=== PATIENT | male | born 1960 | race Two or more races ===

== ENCOUNTER 2017-04-08 09:19 | Day surgery (SDC) | payer MEDICARE, MEDICAID ==
--- NOTE | 2017-03-18 07:20 | HP ---
PREOPERATIVE HISTORY AND PHYSICAL: DATE OF ADMISSION: 04/08/17 [facility] CHIEF COMPLAINT: Bilateral hand pain. HISTORY OF PRESENT ILLNESS: Preston Cordova is a very pleasant 56-year-old man who has pain in his bilateral hands involving most of his fingers. He has locking of his fingers. He has had conservative treatment which he has now failed. He has had cortisone injections. He now presents for surgery for trigger finger releases on his right hand, thumb, index, middle, ring, and small fingers. PAST MEDICAL HISTORY: Significant for hypertension, he has had a kidney transplant. He has history of the humerus fracture with nonunion, history of anemia, depression, back pain, and heartburn. PAST SURGICAL HISTORY: Renal transplant done in [place]. FAMILY HISTORY: Heart disease, diabetes, and cancer. SOCIAL HISTORY: He lives with his . He denies tobacco and alcohol use. He does not regularly exercise. REVIEW OF SYSTEMS: Negative for cephalic symptoms, positive for hypertension which caused renal failure and subsequent kidney transplant, his blood pressure is now better controlled. He has occasional shortness of breath. He has symptoms of heartburn, nausea, vomiting, diarrhea and constipation, prostate trouble, nocturia, also back pain, history of fracture. Negative for skin symptoms. Positive for his depression and anxiety. Negative for endocrine symptoms. PHYSICAL EXAMINATION GENERAL: He is a healthy-appearing, very pleasant man in minimal distress at rest. VITAL SIGNS: Height is 67 inches, weight 166. Pulse 68, blood pressure 144/98 , respirations 16. HEENT: Exam is unremarkable. NECK: He has good range of motion of his neck without pain. RESPIRATORY: His lungs are clear to auscultation, good inspiratory effort, no wheezing. CARDIAC: Regular rate and rhythm without murmur. PERIPHERAL VASCULAR: He has palpable pulses and no peripheral edema. EXTREMITIES: He has tenderness at the A1 pulleys of all of his fingers on the right hand and he cannot make a full tight fist. NEUROLOGICAL: He is alert and oriented without focal deficits. IMPRESSION: Trigger fingers, right thumb, index, middle, ring, and small finger. PLAN: For trigger finger release of the right thumb, index, middle, ring, and small fingers. The surgical procedure, risks, and benefits were explained to the patient today, and he agrees to proceed. We will see him back in followup 10 to 14 days postop. [id number]/CPS #: [id number] MTDD
[~2017-04-08 09:19] MED LIST: Buffered Lidocaine 0.9% SYRIN* 5 ML/SYR SYRINGE INTRADERM ONE
[2017-04-08] MEDS ORDERED: Lidocaine 1% INJ* 10 MG/ML 30 ML SDV ONE (09:25)
[2017-04-08] MEDS ORDERED: Midazolam* 1 MG/ML 5 ML VIAL (5 MG) ONE (10:35)
[2017-04-08] MEDS ORDERED: Lidocaine 2% PF * 5 ML VIAL ONE (10:35)
[2017-04-08] MEDS ORDERED: Propofol* 10 MG/ML 20 ML BTL IV PUSH ONE (10:35)
[2017-04-08] MEDS ORDERED: fentaNYL* 50 MCG/ML 2 ML VIAL (100 MCG VIAL) ONE (10:35)
[2017-04-08] MEDS ORDERED: ceFAZolin 2 GM PREMIX (*) 50 ML IVPB ONE (10:42)
[2017-04-08] MEDS ORDERED: PROCHLORPERAZINE INJ 5 MG/ML 2 ML VIAL IV PRN (11:40)
[2017-04-08] MEDS ORDERED: fentaNYL* 50 MCG/ML 2 ML VIAL (100 MCG VIAL) IV PRN (11:40)
[2017-04-08] MEDS ORDERED: oxyCODONE TAB* 5 MG TAB PO PRN (11:40)
[2017-04-08 12:11] VITALS: BP 106/70
--- NOTE | 2017-04-09 06:29 | OP ---
DATE OF OPERATION: 04/08/17 [facility] DATE OF : 64 SURGEON: Lulu Glover MD VISUALLY IMPAIRED TEACHER: JULES Arredondo. ANESTHESIA: Local MAC. PRE-OP DIAGNOSIS: Trigger fingers to all fingers of the right hand. POST-OP DIAGNOSIS: Trigger fingers to all fingers of the right hand. OPERATIVE PROCEDURE: Trigger finger release, all fingers right hand. ESTIMATED BLOOD LOSS: Zero. TOURNIQUET TIME: 15 minutes. INDICATIONS FOR PROCEDURE: Preston is a 56-year-old man who has triggering of all the fingers of his right hand. He has had cortisone injections trigger finger release of all fingers of his right hand. DESCRIPTION OF PROCEDURE: The patient was brought to the operating room DICTATION ENDS ABRUPTLY. [id number]/CPS #: [id number] MTDD
--- NOTE | 2017-04-09 06:37 | OP ---
OPERATIVE REPORT: DATE OF OPERATION: 04/08/17 DATE OF : 64 SURGEON: Lulu Glover MD. RN OSTOMY: JULES Arredondo. ANESTHESIA: Local MAC. PRE-OP DIAGNOSIS: Trigger fingers every finger of the right hand. POST-OP DIAGNOSIS: Trigger fingers every finger of the right hand. OPERATIVE PROCEDURE: Trigger finger release, all fingers of right hand. ESTIMATED BLOOD LOSS: Zero. TOURNIQUET TIME: About 15 minutes. INDICATION FOR PROCEDURE: Preston is a 56-year-old male who has trigger fingers of all the fingers of his right hand. DICTATION ENDS ABRUPTLY. [id number]/CPS #: [id number] MTDD
--- NOTE | 2017-04-09 06:54 | OP ---
DATE OF OPERATION: 04/08/17 - [facility] DATE OF : 64 SURGEON: Lulu Glover MD. UNIVERSITY EXTENSION SPECIALIST: JULES Arredondo ANESTHESIOLOGIST: Casper Cm MD ANESTHESIA: Local MAC. PRE-OP DIAGNOSIS: Trigger fingers, right hand, all fingers. POST-OP DIAGNOSIS: Trigger fingers, right hand, all fingers. OPERATIVE PROCEDURE: Trigger fingers release, all fingers right hand. ESTIMATED BLOOD LOSS: Zero. TOURNIQUET TIME: About 15 minutes. INDICATIONS FOR PROCEDURE: Preston is a 56-year-old male with trigger fingers of all the fingers on his right hand. He has had cortisone injections, but now has failed conservative treatment and he presents for trigger finger release of all fingers of the right hand. DESCRIPTION OF PROCEDURE: The patient was brought to the operating room, was given a sedation anesthetic and a local infiltration with a total of 15 cc of 1 % plain lidocaine. The skin of his right hand and forearm was prepped and draped in the usual sterile fashion. The hand and forearm were exsanguinated and the tourniquet elevated to 250 mmHg. A transverse incision was made centered over the A1 pulleys of the ring and small finger, and then a separate incision over the A1 pulleys of the index and middle fingers. We dissected bluntly through the subcutaneous tissue down to the flexor tendon sheath of each finger. The digital neurovascular bundles were retracted by the director medical surgical, Marly Rain. The A1 fish was incised longitudinally, completely releasing the flexor tendons which were in good condition with minimal abrasion. The wounds were irrigated and skin edges reapproximated with 4-0 nylon suture. Next, a transverse incision was made centered over the A1 fish of the right thumb. We dissected bluntly through the subcutaneous tissue down to the A1 fish. The digital neurovascular bundles were retracted by the director medical surgical, Marly Rain. The A1 fish was then incised longitudinally completely releasing the FCL tendons which were in good condition , there was a small abrasion. The wound was irrigated and skin edges reapproximated with 4-0 nylon sutures. The wounds were dressed with Xeroform, 4x4, Webril, and an Wilbur wrap. The patient tolerated the procedure well and was brought to the recovery room in good condition. [id number]/[facility] #: [id number] [facility]
== END 2017-04-08 12:29 | disposition home or self-care (01) ==
LOC: OREAST 09:19
PROVIDERS: ATTEND Orthopaedic Surgery
DX: M65.331 Trigger finger, right middle finger (principal); M65.341 Trigger finger, right ring finger; M65.321 Trigger finger, right index finger; M65.311 Trigger thumb, right thumb; M65.351 Trigger finger, right little finger; I10 Essential (primary) hypertension; Z94.0 Kidney transplant status
CPT/HCPCS: J0690; J2001; J2250; J2704; J3010

== ENCOUNTER 2017-08-08 05:54 | Emergency (ER) | payer MEDICARE, MEDICAID ==
--- OUTSIDE RECORDS SUMMARY | 2017-08-08 06:13 | XMS REPORT ---
:1960 External Reference #:[id number] Author Organization [facility] Address [address] [address] Phone [phone] Care Team Providers Name Role Phone Tomás Fam III, MD Primary Care Physician Unavailable Payers Type Date Identification Numbers Payment Provider Subscriber Medicare Primary Effective: Policy Number: Medicare Preston Cordova 1998 [id number] PayID: [id number] [address] [place] [address] Medigap Part B Effective: 2015 Policy Number: [id number] Medicaid Preston Cordova PayID: [id number] [address] [place] [address] Problems Date Description Provider Status Onset: 04/15/2015 Closed fracture of shaft of humerus Ethan Mcdonough M.D. Active Onset: 04/24/2015 Displ transverse fx shaft of frank pan arm, Brett Young, M.D. Active 7thD Onset: 05/13/2015 History of renal transplant Raudel Soler NP Active Onset: 05/13/2015 Hypertension associated with Raudel Soler NP Active transplantation Onset: 01/20/2017 Displ transverse fx shaft of frank pan arm, Zaneb Yaseen, MD Active 7thG Family History Date Family Member(s) Problem(s) Comments General Heart Disease General Diabetes General Cancer Father due to Not listed. () - At 31 Mother Diabetes Type II 74 Social History Type Date Description Comments Lives With ETOH Use Denies alcohol use Smoking Patient has never smoked Recreational Drug Use Denies Drug Use Exercise Type/Frequency Does not exercise Allergies, Adverse Reactions, Alerts Date Description Reaction Status Severity Comments 04/15/2015 Cipro active 06/22/2017 Latex active Medications Medication Date Status Form Strength Qnty SIG Indications Ordering Provider Oxycodone HCL 08/01/ Active Capsules 5mg 15caps 1 tab by Lulu 2017 mouth Glover, every 6-8 M.D. hours as needed pain Crestor / Active Tablets 5mg 1 by Unknown 0000 mouth every day Mycophenolate / Active Capsules 250mg take 2 Unknown Mofetil 0000 capsule by mouth twice a day Tacrolimus / Active Capsules 0.5mg 1 by Unknown 0000 mouth every day Tacrolimus / Active Capsules 1mg 3 po by Unknown 0000 mouth in am. 2 po in pm Pantoprazole / Active Tablets DR 40mg 1 by Unknown Sodium 0000 mouth every day Metoprolol / Active Tablets 50mg 1 by Unknown Tartrate 0000 mouth qd Keflex 04/26/ Hx Capsules 500mg 20caps 1 by M65.311 Jenise 2016 - mouth 4 Tariq, 05/03/ times a M.D. 2016 day for 5 days Tramadol HCL 04/08/ Hx Tablets 50mg 20tabs 1 tab by Lulu 2016 - mouth Glover, 05/25/ every 4-6 M.D. 2017 hours as needed pain Ultracet 04/05/ Hx Tablets 37.5-325mg 20tabs 1 tab by Lulu 2016 - mouth Glover, 05/25/ every 4-6 M.D. 2017 hours as needed pain. For use After surgery. Amoxicillin/Cla 10/20/ Hx Tablets 875-125mg 20tabs 1 tab by L02.03 Patricia vulanate 2015 - mouth 2x Ridley, Potassium 12/28/ per day M.D. 2016 Tylenol PM 10/20/ Hx Tablets 500-25mg 20tabs 1 tab po L02.03 Patricia Extra Strength 2015 - every 6 Ridley, 03/07/ hours as M.D. 2016 needed Olson Brace 04/24/ Hx S42.321D Ethan For Right Mid 2014 - Young, Shaft Humerus 10/20/ M.D. Fracture 2016 No Active 04/15/ Hx Unknown Medications 2014 - 2014 Oxycodone-Aceta 04/15/ Hx Tablets 5-325mg 45tabs 1-2 tabs S42.321A Emilia minophen 2015 - by mouth MD Sohail 10/20/ bid as 2016 needed pain Amlodipine / Hx Tablets 5mg 1 by Unknown Besylate 0000 - mouth 10/20/ every day 2016 Medications Administered in Office Medication Date Status Form Strength Qnty SIG Indications Ordering Provider Depomedrol Administered Injection Lulu 80MG Edmund Glover M.D. Vital Signs Date Vital Result Comment 08/01/2017 Height 67 inches 5'7" Weight 157.00 lb Heart Rate 68 /min BP Systolic 156 mmHg BP Diastolic 70 mmHg Respiratory Rate 20 /min Body Temperature 97.4 F Pain Level 0 BMI (Body Mass Index) 24.6 kg/m2 06/22/2017 Height 67 inches 5'7" Weight 166.00 lb Heart Rate 79 /min BP Systolic 153 mmHg BP Diastolic 87 mmHg Body Temperature 97.9 F BMI (Body Mass Index) 26.0 kg/m2 05/04/2017 Height 67 inches 5'7" Weight 166.00 lb Heart Rate 68 /min BP Systolic 169 mmHg BP Diastolic 100 mmHg Body Temperature 96.0 F BMI (Body Mass Index) 26.0 kg/m2 04/26/2017 Height 67 inches 5'7" Weight 166.00 lb BP Systolic 128 mmHg BP Diastolic 81 mmHg Body Temperature 98.2 F Pain Level 8 BMI (Body Mass Index) 26.0 kg/m2 04/21/2017 Height 67 inches 5'7" Weight 166.00 lb Heart Rate 72 /min BP Systolic 136 mmHg BP Diastolic 88 mmHg Respiratory Rate 16 /min Body Temperature 96.3 F Pain Level 4 BMI (Body Mass Index) 26.0 kg/m2 03/17/2017 Height 67 inches 5'7" Weight 166.00 lb Heart Rate 68 /min BP Systolic 144 mmHg BP Diastolic 98 mmHg Respiratory Rate 16 /min Body Temperature 96.6 F Pain Level 10 BMI (Body Mass Index) 26.0 kg/m2 03/08/2017 Heart Rate 62 /min BP Systolic Sitting 155 mmHg BP Diastolic Sitting 85 mmHg Body Temperature 97.7 F Pain Level 7 02/28/2017 Height 67 inches 5'7" Weight 146.00 lb Heart Rate 88 /min BP Systolic 132 mmHg BP Diastolic 92 mmHg Respiratory Rate 17 /min Body Temperature 96.8 F Pain Level 10 BMI (Body Mass Index) 22.9 kg/m2 02/24/2017 Height 67 inches 5'7" Weight 160.00 lb BP Systolic 109 mmHg BP Diastolic 70 mmHg Body Temperature 96.8 F Pain Level 0 BMI (Body Mass Index) 25.1 kg/m2 01/20/2017 Height 67 inches 5'7" Weight 160.00 lb Heart Rate 67 /min BP Systolic 170 mmHg BP Diastolic 90 mmHg Body Temperature 97.2 F Pain Level 3 BMI (Body Mass Index) 25.1 kg/m2 10/30/2015 Height 67 inches 5'7" Weight 156.00 lb Heart Rate 77 /min Pain Level 4 BMI (Body Mass Index) 24.4 kg/m2 10/23/2015 Height 67 inches 5'7" Weight 156.00 lb Pain Level 4 BMI (Body Mass Index) 24.4 kg/m2 10/21/2015 Height 67 inches 5'7" Weight 159.00 lb Heart Rate 77 /min BP Systolic 148 mmHg BP Diastolic 80 mmHg Body Temperature 98.4 F O2 % BldC Oximetry 99 % BMI (Body Mass Index) 24.9 kg/m2 09/03/2015 Height 67 inches 5'7" Weight 156.00 lb Pain Level 6 BMI (Body Mass Index) 24.4 kg/m2 07/14/2015 Height 67 inches 5'7" Weight 156.00 lb BMI (Body Mass Index) 24.4 kg/m2 06/10/2015 Height 67 inches 5'7" Weight 156.00 lb Pain Level 7 BMI (Body Mass Index) 24.4 kg/m2 06/05/2015 Height 67 inches 5'7" Weight 156.00 lb Heart Rate 67 /min BP Systolic Sitting 173 mmHg BP Diastolic Sitting 108 mmHg Pain Level 10 BMI (Body Mass Index) 24.4 kg/m2 05/26/2015 Heart Rate 65 /min BP Systolic Sitting 142 mmHg BP Diastolic Sitting 93 mmHg Body Temperature 96.8 F Pain Level 6 05/26/2015 Weight 156.00 lb Heart Rate 78 /min BP Systolic Sitting 122 mmHg BP Diastolic Sitting 80 mmHg Respiratory Rate 13 /min Body Temperature 98.0 F O2 % BldC Oximetry 98 % 05/12/2015 Weight 155.00 lb Heart Rate 82 /min BP Systolic Sitting 181 mmHg BP Diastolic Sitting 99 mmHg Body Temperature 97.4 F O2 % BldC Oximetry 97 % 05/08/2015 Height 67 inches 5'7" Weight 149.00 lb Pain Level 7 BMI (Body Mass Index) 23.3 kg/m2 04/24/2015 Height 67 inches 5'7" Weight 149.00 lb Pain Level 10 BMI (Body Mass Index) 23.3 kg/m2 04/22/2015 BP Systolic Recheck 170 mmHg BP Diastolic Recheck 100 mmHg 04/22/2015 Height 65.5 inches 5'5.50" Weight 151.00 lb Heart Rate 83 /min BP Systolic Sitting 179 mmHg BP Diastolic Sitting 101 mmHg Body Temperature 98.0 F BMI (Body Mass Index) 24.7 kg/m2 04/15/2015 Height 67 inches 5'7" Weight 149.00 lb Pain Level 10 BMI (Body Mass Index) 23.3 kg/m2 Results Test Date Test Result H/L Range Note Laboratory test finding 05/13/2015 [place]upe (Antinuclear Negative Negative Antibodies) Comp Metabolic Panel 05/13/2015 Sodium 137 mmol/L 133-145 Potassium 4.2 mmol/L 3.5-5.0 Chloride 106 mmol/L 101-111 Co2 Carbon Dioxide 24 mmol/L 22-32 Anion Gap 7 mmol/L 2-11 Glucose 98 mg/dL 70-100 Blood Urea Nitrogen 22 mg/dL 6-24 Creatinine 1.94 mg/dL High 0.67-1.17 BUN/Creatinine Ratio 11.3 8-20 Calcium 10.6 mg/dL High 8.6-10.3 Total Protein 7.2 g/dL 6.4-8.9 Albumin 4.4 g/dL 3.2-5.2 Globulin 2.8 g/dL 2-4 Albumin/Globulin Ratio 1.6 1-3 Total Bilirubin 0.40 mg/dL 0.2-1.0 Alkaline Phosphatase 178 U/L High 34-104 Alt 36 U/L 7-52 Ast 21 U/L 13-39 Egfr Non- 36.4 >60 Egfr 46.8 >60 1 CBC Auto Diff 05/13/2015 White Blood Count 7.9 10^3/uL 4.8-10.8 Red Blood Count 3.89 10^6/uL Low 4.0-5.4 Hemoglobin 12.4 g/dL Low 14.0-18.0 Hematocrit 37 % Low 42-52 Mean Corpuscular Volume 95 fL High 80-94 Mean Corpuscular Hemoglobin 32 pg High 27-31 Mean Corpuscular HGB Conc 34 g/dL 31-36 Red Cell Distribution Width 13 % 10.5-15 Platelet Count 241 10^3/uL 150-450 Mean Platelet Volume 8 um3 7.4-10.4 Abs Neutrophils 5.5 10^3/uL 1.5-7.7 Abs Lymphocytes 1.6 10^3/uL 1.0-4.8 Abs Monocytes 0.4 10^3/uL 0-0.8 Abs Eosinophils 0.3 10^3/uL 0-0.6 Abs Basophils 0.1 10^3/uL 0-0.2 Abs Nucleated RBC 0 10^3/uL Granulocyte % 69.8 % 38-83 Lymphocyte % 19.8 % Low 25-47 Monocyte % 5.2 % 1-9 Eosinophil % 4.3 % 0-6 Basophil % 0.9 % 0-2 Nucleated Red Blood Cells % 0 Laboratory test finding 05/13/2015 TSH (Thyroid Stim Horm) 1.57 ?IU/mL 0.34-5.60 T3 Free 2.80 pg/mL 2.5-3.9 Free T4 (Free Thyroxine) 0.98 ng/mL 0.61-1.12 Rheumatoid Factor <15 IU/mL <15 2 Cyclic Citrullinated Pep Igg 19.2 U 3 1 Because ethnic data is not always readily available, this report includes an eGFR for both -Americans and non- Americans. The National Kidney Disease Education Program (NKDEP) does not endorse the use of the MDRD equation for patients that are not between the ages of 18 and 70, are , have extremes of body size, muscle mass, or nutritional status, or are non- or non-. According to the National Kidney Foundation, irrespective of diagnosis, the stage of the disease is based on the level of kidney function: Stage Description GFR(mL/min/1.73 m(2)) 1 Kidney damage with normal or decreased GFR 90 2 Kidney damage with mild decrease in GFR 60-89 3 Moderate decrease in GFR 30-59 4 Severe decrease in GFR 15-29 5 Kidney failure <15 (or dialysis) 2 Test Performed by: [address] [address] [employer] Consultant: Joseph Williamson II, M.D., Ph.D. 3 REFERENCE VALUE <20.0 (Negative) Test Performed by: [address] [address] [employer] Consultant: Joseph Williamson II, M.D., Ph.D. Procedures Date CPT Code Description Status 04/08/2017 95327 Trigger Finger Release Incision / Tendon Sheath Completed Incision 04/08/2017 97597 Trigger Finger Release Incision / Tendon Sheath Completed Incision 04/08/2017 78643 Trigger Finger Release Incision / Tendon Sheath Completed Incision 04/08/2017 93713 Trigger Finger Release Incision / Tendon Sheath Completed Incision 04/08/2017 05528 Trigger Finger Release Incision / Tendon Sheath Completed Incision 04/08/2017 52904 Trigger Finger Release Incision / Tendon Sheath Completed Incision 04/08/2017 76723 Trigger Finger Release Incision / Tendon Sheath Completed Incision 04/08/2017 51424 Trigger Finger Release Incision / Tendon Sheath Completed Incision 04/08/2017 50177 Trigger Finger Release Incision / Tendon Sheath Completed Incision 04/08/2017 32982 Trigger Finger Release Incision / Tendon Sheath Completed Incision 06/05/2015 18426 Inject Tendon Sheath Or Ligament Aponeurosis Eg Plantar Completed Fascia 04/15/2015 69332 Closed trtmt humeral shaft fx Completed Encounters Type Date Location Provider CPT E/M Dx Office Visit 03/08/2017 [facility] [place] [address] S42.321D 2:30p Aaron M79.621 Office Visit 02/28/2017 10:15a [facility] Lulu Glover 97752 M65.331 Of Aaron Solis M65.341 M65.342 M65.332 M65.321 M65.311 M65.351 M65.322 M65.352 Office Visit 02/24/2017 11:00a [facility] [address] S42.321G Of [facility]AJamey Office Visit 01/20/2017 8:00a [facility] [address] S42.321G [facility] Office Visit 10/30/2015 10:20a [facility] Zabrina Floyd, [address] S42.321G [facility] RPA-C Office Visit 10/23/2015 9:00a [facility] Zabrina Floyd, 58990 S42.321G [facility] RPA-C Office Visit 10/21/2015 12:40p [facility] Patricia Ridley 34010 L02.03 - Octavia Solis R60.0 Office Visit 09/03/2015 1:15p [facility] [place] [address] S42.321D Of [facility].Crystal Office Visit 06/05/2015 3:30p [facility] Lulu Glover 05500 M65.342 Of Aaron Solis M65.341 M65.332 M65.331 Office Visit 05/26/2015 10:00a [facility] [place] [address] M79.643 Fossil E04.1 I15.1 Office Visit 05/12/2015 2:40p [facility] [place] [address] E04.1 Octavia M79.643 R53.83 I15.1 Office Visit 04/22/2015 2:00p [facility] [place] [address] E04.1 Fossil I15.1 Plan of Care Future Appointment(s):08/05/2017 7:45 am - AVA Arredondo at [facility]08/05/2017 7:45 am - Lulu Glover M.D. at [facility]08/15/2017 10:15 am - Lulu Glover M.D. at [facility]08/01/2017 - RYLAN Arredondo65.322 Trigger finger, left index fingerFollow up:Follow up: 10-14 days rrpjkzQ51.352 Trigger finger , left little finger
[2017-08-08] MEDS ORDERED: NS 0.9% 1000 ML* 1,000 ML IV ONE ×2 (08:04→10:21)
[2017-08-08 08:30] LABS: ABS Basophils 0 10^3/ul (0-0.2); ABS Eosinophils 0.2 10^3/ul (0-0.6); ABS Lymphocytes 2.2 10^3/ul (1.0-4.8); ABS Monocytes 0.4 10^3/ul (0-0.8); ABS Neutrophils 3.3 10^3/ul (1.5-7.7); ABS Nucleated RBC 0 10^3/ul; Hematocrit 38 % (42-52); Hemoglobin 12.7 g/dl (14.0-18.0); Mean Corpuscular HGB Conc 34 g/dl (31-36); Mean Corpuscular Hemoglobin 32 pg (27-31); Mean Corpuscular Volume 95 fL (80-94); Mean Platelet Volume 9 um3 (7.4-10.4); Nucleated Red Blood Cells % 0.1; Platelet Count 191 10^3/ul (150-450); Red Blood Count 4.01 10^6/ul (4.0-5.4); Red Cell Distribution Width 14 % (10.5-15); White Blood Count 6.1 10^3/ul (3.5-10.8)
[2017-08-08 08:35] LABS: EGFR Non-African American 22.8 (>60)
[2017-08-08 08:43] LABS: Urine Appearance Clear; Urine Blood Negative (Negative); Urine Color Yellow; Urine Ketones Negative (Negative); Urine Protein 2+(100 mg/dL) (Negative); Urine Specific Gravity 1.018 (1.010-1.030); Urine Urobilinogen Negative (Negative)
[2017-08-08 11:40] VITALS: BP 156/85
--- NOTE | 2017-08-08 15:51 | ED ---
Tr Herrera Thomas, scribed for Baldomero Pelaez MD on 08/08/17 at 0818 . Complex/Multi-Sys Presentation - HPI Summary HPI Summary: The patient is a 57 year old male with recent flu exposure and flu-like symptoms that are resolved by time of evaluation in the emergency department. He has a history of kidney transplant in 2005 and complains of a taste of ammonia. He has been eating and drinking normally. - History Of Current Complaint Chief Complaint: EDGeneral Time Seen by Provider: 08/08/17 07:49 Hx Obtained From: Patient Onset/Duration: Still Present Timing: Constant Severity Currently: Mild Location: Negative Alleviating Factor(s): None Associated Signs And Symptoms: Positive: Other - Flu-like symptoms (relieved in ED), taste of ammonia Related History: Other - Recent flu exposure - Allergies/Home Medications Allergies/Adverse Reactions: Allergies Allergy/AdvReac Type Severity Reaction Status Date / Time Acetaminophen [From Tylenol] Allergy Severe See Comment Verified 08/08/17 06:03 Ciprofloxacin [From Cipro] Allergy Severe chemical Verified 08/08/17 06:03 imbalance Latex Allergy Severe rash, skin Verified 08/08/17 06:03 peels off PMH/Surg Hx/FS Hx/Imm Hx Previously Healthy: No Endocrine/Hematology History: Reports: Hx Anemia Denies: Hx Diabetes Cardiovascular History: Reports: Hx Hypertension Denies: Hx Pacemaker/ICD Respiratory History: Reports: Hx Asthma - as a child GI History: Reports: Hx Gastroesophageal Reflux Disease, Hx Irritable Bowel, Hx Ulcer - a few no problems, Other GI Disorders - umibical hernia, polyps History: Reports: Other Problems/Disorders - enlarged prostate Musculoskeletal History: Reports: Hx Arthritis, Hx Rheumatoid Arthritis, Hx Tendonitis - arms occassionally Sensory History: Reports: Hx Contacts or Glasses - glasses Denies: Hx Cataracts, Hx Glaucoma, Hx Hearing Aid Opthamlomology History: Reports: Hx Contacts or Glasses - glasses Denies: Hx Cataracts, Hx Glaucoma Neurological History: Reports: Hx Headaches - occassionally, Hx Migraine - off and on, Other Neuro Impairments/Disorders - neuropathy on feet Psychiatric History: Reports: Hx Anxiety, Hx Depression Denies: Hx Panic Disorder - Cancer History Hx Chemotherapy: No - Surgical History Surgery Procedure, Year, and Place: KIDNEY TRANSPLANT,hernia Hx Anesthesia Reactions: No Infectious Disease History: No Infectious Disease History: Denies: Traveled Outside the [place] in Last 30 Days - Family History Known Family History: Positive: Hypertension, Diabetes - Social History Alcohol Use: None Substance Use Type: Reports: None Smoking Status (MU): Former Smoker Amount Used/How Often: smoked for 15-20 years 1ppd Review of Systems Negative: Fever Positive: Other - taste of ammonia All Other Systems Reviewed And Are Negative: Yes Physical Exam - Summary Physical Exam Summary: Appearance: The patient is well-nourished in no acute distress and in no acute pain. Skin: The skin is warm and dry and skin color reflects adequate perfusion. HEENT: The head is normocephalic and atraumatic. The pupils are equal and reactive. The conjunctivae are clear and without drainage. Nares are patent and without drainage. Mouth reveals dry mucous membranes and the throat is without erythema and exudate. The external ears are intact. The ear canals are patent and without drainage. The tympanic membranes are intact. The patient says that he smells ammonia. Neck: the neck is supple with full range of motion and non-tender. There are no carotid bruits. There is no neck vein distension. Respiratory: Chest is non-tender. Lungs are clear to auscultation and breath sounds are symmetrical and equal. Cardiovascular: Heart is regular rate and rhythm. There is no murmur or rub auscultated. There is no peripheral edema and pulses are symmetrical and equal. Abdomen: The abdomen is soft and non-tender. There are normal bowel sounds heard in all four quadrants and there is no organomegaly palpated. Musculoskeletal: There is no back tenderness noted. Extremities are non-tender with full range of motion. There is good capillary refill. There is no peripheral edema or calf tenderness elicited. Neurological: Patient is alert and oriented to person, place and time. The patient has symmetrical motor strength in all four extremities. Cranial nerves are grossly intact. Deep tendon reflexes are symmetrical and equal in all four extremities. Psychiatric: The patient has an appropriate affect and does not exhibit any anxiety or depression. Triage Information Reviewed: Yes Vital Signs On Initial Exam: Initial Vitals Temp Pulse Resp BP Pulse Ox 98.0 F 79 16 149/92 100 08/08/17 05:59 08/08/17 05:59 08/08/17 05:59 08/08/17 05:59 08/08/17 05:59 Vital Signs Reviewed: Yes - [place] Coma Scale Coma Scale Total: 15 Diagnostics - Vital Signs Vital Signs Temp Pulse Resp BP Pulse Ox 08/08/17 07:30 80 140/85 99 08/08/17 07:15 70 100 08/08/17 07:13 143/82 08/08/17 05:59 98.0 F 79 16 149/92 100 - Laboratory Lab Results: Lab Results 08/08/17 08/08/17 08/08/17 Range/Units 08:09 08:09 08:30 WBC 6.1 (3.5-10.8) 10^3/ul RBC 4.01 (4.0-5.4) 10^6/ul Hgb 12.7 L (14.0-18.0) g/dl Hct 38 L (42-52) % MCV 95 H (80-94) fL MCH 32 H (27-31) pg MCHC 34 (31-36) g/dl RDW 14 (10.5-15) % Plt Count 191 (150-450) 10^3/ul MPV 9 (7.4-10.4) um3 Neut % (Auto) 54.2 (38-83) % Lymph % (Auto) 36.0 (25-47) % [place] % (Auto) 6.6 (1-9) % Eos % (Auto) 3.0 (0-6) % Baso % (Auto) 0.2 (0-2) % Absolute Neuts (auto) 3.3 (1.5-7.7) 10^3/ul Absolute Lymphs (auto) 2.2 (1.0-4.8) 10^3/ul Absolute Monos (auto) 0.4 (0-0.8) 10^3/ul Absolute Eos (auto) 0.2 (0-0.6) 10^3/ul Absolute Basos (auto) 0 (0-0.2) 10^3/ul Absolute Nucleated RBC 0 10^3/ul Nucleated RBC % 0.1 Sodium 134 (133-145) mmol/L Potassium 4.4 (3.5-5.0) mmol/L Chloride 110 (101-111) mmol/L Carbon Dioxide 17 L (22-32) mmol/L Anion Gap 7 (2-11) mmol/L BUN 42 H (6-24) mg/dL Creatinine 2.89 H (0.67-1.17) mg/dL Est GFR ( Amer) 29.3 (>60) Est GFR (Non-Af Amer) 22.8 (>60) BUN/Creatinine Ratio 14.5 (8-20) Glucose 112 H (70-100) mg/dL Calcium 9.7 (8.6-10.3) mg/dL Total Bilirubin 0.40 (0.2-1.0) mg/dL AST 17 (13-39) U/L ALT 22 (7-52) U/L Alkaline Phosphatase 119 H (34-104) U/L Total Protein 7.5 (6.4-8.9) g/dL Albumin 4.1 (3.2-5.2) g/dL Globulin 3.4 (2-4) g/dL Albumin/Globulin Ratio 1.2 (1-3) Urine Color Yellow Urine Appearance Clear Urine pH 5.0 (5-9) Ur Specific [place] 1.018 (1.010-1.030) Urine Protein 2+(100 mg/dl) H (Negative) Urine Ketones Negative (Negative) Urine Blood Negative (Negative) Urine Nitrate Negative (Negative) Urine Bilirubin Negative (Negative) Urine Urobilinogen Negative (Negative) Ur Leukocyte Esterase Negative (Negative) Urine WBC (Auto) Absent (Absent) Urine RBC (Auto) Absent (Absent) Urine Bacteria Absent (Absent) Urine Glucose Negative (Negative) Result Diagrams: 08/08/17 08:09 08/08/17 08:09 Lab Statement: Any lab studies that have been ordered have been reviewed, and results considered in the medical decision making process. Complex Multi-Symp Course/Dx Course Of Treatment: Mr. Cordova has just suffered through influenza. He has now noticed that his urine smells like ammonia and he is concerned as he had a kidney transplant in 2005. His labs revealed that he was somewhat dehydrated with his BUN and creatinine both elevated over his norm. I doubt that this is rejection or acute injury and he was hydrated here and D/C'd with a recommendation for close F/U. - Diagnoses Provider Diagnoses: Dehydration Discharge - Discharge Plan Condition: Stable Disposition: HOME Patient Education Materials: Dehydration (ED) Referrals: Yessenia Wright MD [Primary Care Provider] - 3 Days Additional Instructions: Follow up with your primary care provider in three days. Return to the emergency department for any new or worsening symptoms. The documentation as recorded by the Tr babin Thomas accurately reflects the service I personally performed and the decisions made by me, Baldomero Pelaez MD.
== END 2017-08-08 11:39 | disposition home or self-care (01) ==
LOC: ED 05:54
DX: E86.0 Dehydration (principal); R43.9 Unspecified disturbances of smell and taste; D64.9 Anemia, unspecified; Z20.828 Contact with and (suspected) exposure to other viral communicable diseases; I10 Essential (primary) hypertension; J45.909 Unspecified asthma, uncomplicated; K21.9 Gastro-esophageal reflux disease without esophagitis; N40.0 Benign prostatic hyperplasia without lower urinary tract symptoms; M06.9 Rheumatoid arthritis, unspecified; Z94.0 Kidney transplant status; F41.9 Anxiety disorder, unspecified; F32.9 Major depressive disorder, single episode, unspecified; Z88.6 Allergy status to analgesic agent; Z88.1 Allergy status to other antibiotic agents; Z91.040 Latex allergy status; Z87.891 Personal history of nicotine dependence
CPT/HCPCS: 36415; 80053; 81003; 81015; 85025; 96360; 96361; 99283

== ENCOUNTER 2018-03-19 08:57 | Observation (INO) | payer MEDICARE, MEDICAID ==
[2018-03-19] MEDS ORDERED: NS 0.9% 1000 ML* 1,000 ML IV ONE (09:29)
[2018-03-19] MEDS ORDERED: Clindamycin 300 MG IVPREMIX(* 300 MG/50 ML SDV IVPB ONE (09:46)
[2018-03-19 09:54] LABS: ABS Basophils 0 10^3/ul (0-0.2); ABS Eosinophils 0.2 10^3/ul (0-0.6); ABS Neutrophils 7.3 10^3/ul (1.5-7.7); ABS Nucleated RBC 0 10^3/ul; Eosinophil % 1.9 % (0-6); Hematocrit 40 % (42-52); Hemoglobin 13.7 g/dl (14.0-18.0); Lymphocyte % 18.6 % (25-47); Mean Corpuscular HGB Conc 35 g/dl (31-36); Mean Corpuscular Hemoglobin 33 pg (27-31); Mean Corpuscular Volume 94 fL (80-94); Mean Platelet Volume 8.6 um3 (7.4-10.4); Nucleated Red Blood Cells % 0; Platelet Count 214 10^3/ul (150-450); Red Blood Count 4.22 10^6/ul (4.00-5.40); Red Cell Distribution Width 14 % (10.5-15); White Blood Count 10.5 10^3/ul (3.5-10.8)
--- NOTE | 2018-03-19 09:55 | ED ---
Complex/Multi-Sys Presentation - HPI Summary HPI Summary: Pt. is a 57-year-old male who presents emergency department for dental pain and chest pain. History of renal transplant in 2005. Patient is currently on immunosuppressive medication. States that he is always had poor dentition and has noticed increased and pain over the last 2-3 days. Patient states last night house" drained out from underneath his tongue. Patient states at that time he had substernal chest pressure which lasted for roughly 30 minutes and resolved. Patient in the ER is currently chest pain-free. Patient states that he is been having chills and nausea. Symptoms are moderate in severity. Patient states that poor oral intake secondary to pain and not feeling well. No current modifying factors. Past medical history of renal transplant, hypertension, high cholesterol. - History Of Current Complaint Chief Complaint: EDDentalPain Time Seen by Provider: 03/19/18 09:19 Hx Obtained From: Patient, Family/Rivet Spinner - Allergies/Home Medications Allergies/Adverse Reactions: Allergies Allergy/AdvReac Type Severity Reaction Status Date / Time acetaminophen [From Tylenol] Allergy See Comment Verified 03/19/18 09:00 ciprofloxacin Allergy See Comment Verified 03/19/18 09:00 latex Allergy Rash Verified 03/19/18 09:00 PMH/Surg Hx/FS Hx/Imm Hx Previously Healthy: Yes Endocrine/Hematology History: Reports: Hx Anemia Denies: Hx Diabetes Cardiovascular History: Reports: Hx Hypertension Denies: Hx Pacemaker/ICD Respiratory History: Reports: Hx Asthma - as a child GI History: Reports: Hx Gastroesophageal Reflux Disease, Hx Irritable Bowel, Hx Ulcer - a few no problems, Other GI Disorders - umibical hernia, polyps History: Reports: Other Problems/Disorders - enlarged prostate Musculoskeletal History: Reports: Hx Arthritis, Hx Rheumatoid Arthritis, Hx Tendonitis - arms occassionally Sensory History: Reports: Hx Contacts or Glasses - glasses Denies: Hx Cataracts, Hx Glaucoma, Hx Hearing Aid Opthamlomology History: Reports: Hx Contacts or Glasses - glasses Denies: Hx Cataracts, Hx Glaucoma Neurological History: Reports: Hx Headaches - occassionally, Hx Migraine - off and on, Other Neuro Impairments/Disorders - neuropathy on feet Psychiatric History: Reports: Hx Anxiety, Hx Depression Denies: Hx Panic Disorder - Cancer History Hx Chemotherapy: No - Surgical History Surgery Procedure, Year, and Place: KIDNEY TRANSPLANT,hernia Hx Anesthesia Reactions: No Infectious Disease History: No Infectious Disease History: Denies: Traveled Outside the [place] in Last 30 Days - Family History Known Family History: Positive: Hypertension, Diabetes - Social History Occupation: Disabled Lives: With Family Alcohol Use: None Substance Use Type: Reports: None Smoking Status (MU): Former Smoker Amount Used/How Often: smoked for 15-20 years 1ppd Review of Systems Positive: Chills Positive: Dental Pain Positive: Chest Pain Respiratory: Negative Negative: Shortness Of Breath Positive: Nausea. Negative: Abdominal Pain, Vomiting, Diarrhea Genitourinary: Negative Neurological: Negative All Other Systems Reviewed And Are Negative: Yes Physical Exam Triage Information Reviewed: Yes Vital Signs On Initial Exam: Initial Vitals Temp Pulse Resp BP Pulse Ox 98.9 F 90 18 165/98 99 03/19/18 09:00 03/19/18 09:00 03/19/18 09:00 03/19/18 09:00 03/19/18 09:00 Vital Signs Reviewed: Yes Appearance: Positive: Thin - Pt. sitting up in bed in NAD. Appears to feel unwell but is nontoxic appearing. present. Skin: Positive: Warm, Dry Head/Face: Positive: Normal Head/Face Inspection Eyes: Positive: Normal, EOMI Dental: Positive: Other - Poor dentition throughout with numerous extractions. Gums are diffusely erythematous and edematous. Do not appreciate any drainable abscess. Patient complains of pain on palpation under his tongue but there is no edema. No trismus. No submandibular edema. No facial Neck: Positive: Supple, Other: - Lateral submandibular lymphadenopathy. Respiratory/Lung Sounds: Positive: Clear to Auscultation, Breath Sounds Present Cardiovascular: Positive: Normal, RRR Abdomen Description: Positive: Nontender, Soft Neurological: Positive: Normal, CN Intact II-III Psychiatric: Positive: Affect/Mood Appropriate Diagnostics - Vital Signs Vital Signs Temp Pulse Resp BP Pulse Ox 03/19/18 09:14 83 15 154/101 98 03/19/18 09:00 98.9 F 90 18 165/98 99 - Laboratory Result Diagrams: 03/19/18 09:35 03/19/18 09:35 Lab Statement: Any lab studies that have been ordered have been reviewed, and results considered in the medical decision making process. Complex Multi-Symp Course/Dx Course Of Treatment: Patient presenting with dental pain and chest pain that occurred yesterday. Given his history of renal transplant being immunocompromised will obtain labs, cultures, start IV fluids and antibx. ECG done at 0938 shows a sinus rhythm of 63 bpm, mild ST elevation in anterior leads. No prior tracing to compare. Pt. current is chest pain free. CBC is unremarkable. CMP shows CO2 16, BUN 28, Cr 2.25, alk phose 136, CRP 54. CXR negative for acute findings. Given ECG changes and history hospitalist was consulted, Dr. Choi. She recommends CT face to further evaluate for dental abscess (no contrast used given kidney function.). 1130: Findings and plan discussed with pt. and . Morphine and zofran ordered. CT maxillofacial w/o per readiology: IMPRESSION: 1. Many of the patient's teeth are fractured and/ or missing. Corresponding to the. patient's current clinical presentation, there is periapical lucency surrounding a left. lower tooth. A formal dental examination is advised. 2. There is mild infiltration of the subcutaneous tissue overlying the midline and left of. midline mandible without drainable fluid collection. CT findings discussed with Dr. Choi and she has accepted pt. 1250: CT scan and plan for admission discussed with pt. and . He is resting comfortably and pain has improved. - Diagnoses Provider Diagnoses: Dental infection, Abnormal ECG, Chest pain Discharge - Sign-Out/Discharge Documenting (check all that apply): Patient Departure - Discharge Plan Condition: Stable Disposition: ADMITTED TO [facility] Referrals: Yessenia Wright MD [Primary Care Provider] - - Billing Disposition and Condition Condition: STABLE Disposition: Admitted to [facility]
[2018-03-19 10:00] LABS: INR 1.02 (0.77-1.02)
[2018-03-19 10:16] LABS: EGFR Non-African American 30.4 (>60)
--- NOTE | 2018-03-19 10:46 | RAD ---
INDICATION: Chest pain COMPARISON: CT chest April 11, 2018 TECHNIQUE: Single AP view of the chest was obtained. FINDINGS: The heart and mediastinum exhibit normal size and contour. The lungs are grossly clear. There is no evidence of a large pleural effusion. Visualized bones are normal for the patient's age. IMPRESSION: No radiographic evidence for acute cardiopulmonary abnormality on this single AP view chest x-ray.
[2018-03-19] MEDS ORDERED: Ondansetron INJ* 2 MG/ML VIAL IV ONE (11:34)
[2018-03-19] MEDS ORDERED: Morphine INJ* 2 MG/ML 1 ML SYRINGE (TWO MG - NEW SYRINGE VERSION) IV ONE (11:34)
--- NOTE | 2018-03-19 12:26 | RAD ---
indication: Jaw pain "all over" and report of "pus draining from beneath the tongue" COMPARISON: None A CT scan of the maxillofacial bones was performed without intravenous contrast enhancement. Contiguous axial sections were obtained from the level of the hyoid bone to just above the frontal sinuses. Findings: There is mild infiltration of the subcutaneous tissue overlying the left and midline mandible. There is no drainable fluid collection. There is lucency surrounding the root of the left of midline lower anterior to (axial image 16 and coronal image 21). There is no drainable fluid collection. Many of the patient's other teeth are either fractured or absent. There are no pathologically enlarged lymph nodes identified. Bones: There is no displaced fracture or dislocation. The orbital rim is intact. Bilaterally the nasal bones are intact. The zygomatic arch is intact. The pterygoid plates are intact. Orbits: The globes are round. The optic nerves are symmetric. The extraocular musculature is normal. There is no post septal or intraconal inflammatory change. There is no retrobulbar hematoma. Paranasal Sinuses: The paranasal sinuses are clear. Visualized brain: The limited views of the brain do not demonstrate any acute abnormality or extra-axial hemorrhage. IMPRESSION: 1. Many of the patient's teeth are fractured and/or missing. Corresponding to the patient's current clinical presentation, there is periapical lucency surrounding a left lower tooth. A formal dental examination is advised. 2. There is mild infiltration of the subcutaneous tissue overlying the midline and left of midline mandible without drainable fluid collection.
[2018-03-19] MEDS ORDERED: Nitroglycerin TAB 0.4 MG* 0.4 MG TAB SL PRN (13:30)
[2018-03-19] MEDS ORDERED: Ondansetron INJ* 2 MG/ML VIAL IV PRN (13:30)
[2018-03-19] MEDS ORDERED: oxyCODONE TAB* 5 MG TAB PO PRN (13:46)
[2018-03-19] MEDS ORDERED: Metoprolol Succinate XL TAB* 50 MG PO ONE (13:49)
[2018-03-19] MEDS ORDERED: Aspirin TAB* 325 MG PO ONE (14:00)
[2018-03-19] MEDS ORDERED: Aspirin 81 mg CHEW TAB* 81 MG TAB.CHEW PO ONE (14:14)
[2018-03-19] MEDS ORDERED: Aspirin 81 mg CHEW TAB* 81 MG TAB.CHEW ONE (14:15)
[2018-03-19] MEDS: Clindamycin 600 MG IVPREMIX(* 600 MG/50 ML SDV IV SCH (17:10)
[2018-03-19] MEDS: Sodium Bicarbonate (ANTACID)* 650 MG TAB PO SCH (17:10)
[2018-03-19] MEDS ORDERED: Atorvastatin* 10 MG TAB PO SCH (18:00)
[2018-03-19] MEDS ORDERED: LAMIVUDINE 100 MG PO SCH ×2 (18:00→21:00)
--- NOTE | 2018-03-19 20:20 | HP ---
CC: Raudel Soler NP * ADMISSION HISTORY AND PHYSICAL: DATE OF ADMISSION: 03/19/18 PRIMARY CARE PROVIDER: Raudel Soler NP MY ATTENDING WHILE IN THE HOSPITAL: Dr. Karla Schaffer.* (DICTATED BY JULES VOGEL) CHIEF COMPLAINT: Dental pain and chest pain. HISTORY OF PRESENT ILLNESS: Mr. Cordova is a 57-year-old male with past medical history significant for renal transplant in 2003 due to hypertension, chronic anemia, GERD, hyperlipidemia, who presents to the emergency department with feeling poorly for 2 days with associated pain and chills as well as subjective fevers. The patient has not been to dentist in years due to fear. The patient has had his teeth recently starting to fall out without warning. He does not know why this is. The patient thinks that it may be related to his previously being on dialysis, because they told him that his bone density was low. The patient has been having sweats and severe pain in his mouth with drainage under his tongue last night. The patient has had no difficulty opening his mouth, chewing, and is being able to tolerate foods by mouth, but he has had a decreased appetite. The patient had yesterday chest pain for approximately half an hour that was described as a tightness on the left side of his chest, severe, associated with sweating and shortness of breath. The patient has epigastric pain, which he states has been going on a for long time, which he believes associated with mesh from a hernia repair, because he states it started after this operation and the chest pain was different from that. The patient took an oxycodone and his pain resolved. The patient has never had a pain like this before. The patient never had diabetes to his knowledge. He does have hyperlipidemia, is on Crestor. The patient has not had any cough, wheezing, or other symptoms. The patient has daily diarrhea and abdominal pain as above, but has no other symptoms, no other recent changes in medications that he knows of or recent sick contacts. The patient, in his medical record, is documented being HIV positive; however, he has no knowledge of this. The patient's medications from when he was here in 2016 include medications consistent with high-intensity antiretroviral therapy; however, he does not state that he has no knowledge of this, no one ever told him about it, and that he never had illicit drug use, and just takes what he is told to take and that no one ever explained to him. Due to the concern for chest pain as well as dental infection in an immunocompromised patient, we were asked to evaluate for admission. PAST MEDICAL HISTORY: Renal transplant due to hypertension, anemia, GERD, uncontrolled hypertension, carpal tunnel, hyperlipidemia, hip pain, possible HIV positive status. PAST SURGICAL HISTORY: Renal transplant, trigger finger release, hernia repair. MEDICATIONS: According to most recent primary care note: 1. Lamivudine 100 mg p.o. q.p.m. 2. Tacrolimus 3 mg p.o. q.a.m., 2.5 mg p.o. q.p.m. 3. Metoprolol succinate 50 mg p.o. daily. 4. Crestor 5 mg p.o. q.p.m. 5. Mycophenolate 150mg mg p.o. b.i.d. 6. Multivitamins. 7. Sustiva 600 mg p.o. q.p.m. 8. Abacavir 600 mg p.o. q.p.m. 9. Pantoprazole 40 mg p.o. nightly. 10. Oxycodone 5 mg p.o. q.6 hours as needed. ALLERGIES: TYLENOL, CIPROFLOXACIN, and LATEX. FAMILY HISTORY: The patient's father in a car crash, had no known health problems. The patient's mother has dementia and diabetes and is still alive. The patient has a sister, who of complications of diabetes. The patient has a strong family history for different types of cancer, diabetes, hypertension, and hyperlipidemia. SOCIAL HISTORY: The patient never smoked, never drank, never used illicit drugs. The patient used to work in [employer]. He is and has 8 children. The patient would like his surrogate decision maker to be his , Nancy Anderson, as above. REVIEW OF SYSTEMS: A 14-point review of systems was reviewed and is negative except as above in the HPI. PHYSICAL EXAMINATION GENERAL: The patient is a 57-year-old male, who appears stated age and sitting comfortably in bed, in no acute distress. HEENT: Head: Normocephalic, atraumatic. Sclerae anicteric. No conjunctival injection. Nasal mucosa moist. Oral mucosa moist. There is very poor dentition with signs of erosive gum disease around several of the teeth with diffuse swelling. No obvious abscess or purulent drainage. NECK: Supple, nontender. No lymphadenopathy. No carotid bruit auscultated. No JVD. RESPIRATORY: Clear to auscultation bilaterally. No wheezes, rales, or rhonchi. Good air exchange bilaterally. CARDIAC: Regular rate and rhythm. No clicks, murmurs, gallops, or rubs. Pulse 2+ in bilateral dorsalis pedis, posterior tibial, and radial areas. ABDOMEN: Not soft, nondistended. Bowel sounds present in all 4 quadrants. No hepatosplenomegaly. No abdominal bruits auscultated. Slight tenderness to palpation over the right lower quadrant; the patient states it is chronic. GENITOURINARY: No suprapubic or CVA tenderness. NEUROLOGIC: Cranial nerves II through XII intact. No focal deficits. Alert and oriented x3. PSYCHIATRIC: Pleasant and cooperative. SKIN: Clear, intact. No rash. DIAGNOSTIC STUDIES/LAB DATA: White blood cell count 10.5, hemoglobin 13.7, hematocrit 40, platelet count 214. INR 1.02. Sodium 136, potassium 4.4, chloride 110, carbon dioxide, anion gap 10, BUN 28, creatinine 2.25, glucose 113 , lactic acid 0.7, calcium 10.7. Total bilirubin 0.6, AST 14, ALT 16, alkaline phosphatase 136. Troponin I 0.01. CRP 54.18. Total protein 7.8, albumin 4.3, globulin 3.5. Chest x-ray read as no radiographic evidence of acute cardiopulmonary abnormality. Electrocardiogram shows normal sinus rhythm. J-point elevation in V2, V3, V4, V5, and V6 as well as I and aVL. No significant changes. No previous EKG to compare, rate of 63, QTc of 392. Repeat EKG shows no significant changes. Maxillofacial CT read as many of the patient's teeth are fractured or missing corresponding to the patient's current presentation. There is a periapical lucency surrounding the left lower teeth. Formal dental examination is advised. There is mild infiltration of the subcutaneous tissue overlying the midline and left midline mandible without drainable fluid collection. ASSESSMENT AND PLAN/IMPRESSION: Mr. Cordova is a 57-year-old male with past medical history significant for hypertension leading to renal transplant with anemia, hyperlipidemia, who presents to the emergency department with jaw pain and 1 episode of chest pain yesterday. The patient will be admitted to the hospital for IV antibiotics for his dental infection due to his immunocompromised state as well as evaluation of his chest pain. 1. Dental infection, possible abscess. The patient has no drainable fluid collection on CT scan or visual examination. The patient has very poor dentition and pain and swelling in his face. The patient will be started on clindamycin IV 600 q.8 hours. This will be transitioned to oral clindamycin. The patient should follow up with a dentist as soon as possible for worsening. ENT evaluation should be entertained while in the hospital. The patient has no white blood cell count. He is not tachycardic. Has no fevers. The patient is not hypotensive. The patient is not septic at this time. Blood cultures are pending. There is no wound swab for culture. 2. Chest pain. The patient has chest pain that is worrisome for cardiac in origin. The patient due to antiretroviral therapy, which is by his record taking, as well as chronic kidney disease, hypertension, and hyperlipidemia is at high risk for coronary artery disease. The patient does not currently have chest pain. The patient has ST-segment elevation, but does not currently have chest pain and has negative initial troponin. The patient will have troponins trended x3. He will have nuclear medicine stress test in the morning as well as a repeat EKG. The patient will not be given aspirin yet, so received 324 mg now. The patient will have nitroglycerin for recurrent chest pain. 3. Chronic kidney disease, status post renal transplant. The patient's creatinine is 2.25, which is approximately his baseline. The patient has significant acidosis. The patient is supposed to be on sodium bicarbonate according to the most recent note from Dr. Sheth. This will be restarted. The patient's potassium and other electrolytes are within normal limits except for a slightly elevated calcium, which may be due to the dehydration. The patient received fluids while in the emergency department, so this will be rechecked in the morning. The patient is to follow up with his transplant surgeon as outpatient. The patient will be continued on his mycophenolate and his tacrolimus. 4. Gastroesophageal reflux disease. The patient will continue on pantoprazole. We will double his home dose. 5. Possible human immunodeficiency virus positive status. The patient denies any knowledge of human immunodeficiency virus-positive status. We will obtain old records from [facility] and repeat HIV test at this time. The patient is currently on antiretroviral therapy, we will continue this while he is in the hospital. The patient should follow up with Infectious Disease as outpatient if he is indeed human immunodeficiency virus-positive. 6. FEN. The patient will have a heart-healthy diet without caffeine and will be n.p.o. after midnight for stress test in the morning. The patient will have fluids and after that he is n.p.o. 7. DVT prophylaxis. The patient will have SCDs for DVT prophylaxis. 8. Code status. The patient would like to be a full code. The patient's surrogate decision maker is as above. 9. Disposition. The patient is admitted for observation. TIME SPENT: Approximately, 90 minutes was spent on this admission, 45 of which was spent [id number] with the patient obtaining history and physical and discussing the treatment plan. Plan has been discussed with my attending, Dr. Karla Schaffer, and she is in agreement. JULES VOGEL [id number]/[facility] #: [id number] RL
[2018-03-19] MEDS ORDERED: EFAVIRENZ 600 MG PO SCH (21:00)
[2018-03-19] MEDS ORDERED: Tacrolimus CAP(*) 1 MG PO SCH (21:00)
[2018-03-19] MEDS ORDERED: Tacrolimus CAP(*) 0.5 MG PO SCH (21:00)
[2018-03-19] MEDS ORDERED: Rosuvastatin (NF) 5 MG TAB PO SCH (21:00)
[2018-03-19] MEDS ORDERED: ABACAVIR 300 MG PO SCH (21:00)
[2018-03-19] MEDS: Mycophenolate Mofetil CAP(*) 250 MG PO SCH (23:18)
[2018-03-19] MEDS: HYDROmorphone INJ1* 1 MG/ML SYRINGE IV SLOW PU PRN (23:20)
[2018-03-19 23:46] LABS: EGFR Non-African American 30.9 (>60)
[2018-03-20] MEDS ORDERED: NS 0.9% 1000 ML* 1,000 ML IV SCH
[2018-03-20] MEDS: Clindamycin 600 MG IVPREMIX(* 600 MG/50 ML SDV IV SCH ×2 (00:17→09:24)
[2018-03-20] MEDS ORDERED: Senna TAB PO PRN (05:07)
[2018-03-20] MEDS ORDERED: Docusate CAP* 100 MG PO PRN (05:07)
[2018-03-20] MEDS: HYDROmorphone INJ1* 1 MG/ML SYRINGE IV SLOW PU PRN (05:20)
[2018-03-20 07:49] LABS: ABS Basophils 0 10^3/ul (0-0.2); ABS Eosinophils 0.3 10^3/ul (0-0.6); ABS Lymphocytes 1.5 10^3/ul (1.0-4.8); ABS Monocytes 0.7 10^3/ul (0-0.8); ABS Neutrophils 5.6 10^3/ul (1.5-7.7); ABS Nucleated RBC 0 10^3/ul; Eosinophil % 3.3 % (0-6); Hematocrit 37 % (42-52); Hemoglobin 12.5 g/dl (14.0-18.0); Lymphocyte % 18.5 % (25-47); Mean Corpuscular HGB Conc 34 g/dl (31-36); Mean Corpuscular Hemoglobin 32 pg (27-31); Mean Corpuscular Volume 95 fL (80-94); Mean Platelet Volume 8.2 um3 (7.4-10.4); Nucleated Red Blood Cells % 0.1; Platelet Count 185 10^3/ul (150-450); Red Blood Count 3.92 10^6/ul (4.00-5.40); Red Cell Distribution Width 13 % (10.5-15); White Blood Count 8.1 10^3/ul (3.5-10.8)
[2018-03-20 08:14] LABS: EGFR Non-African American 33.5 (>60)
[2018-03-20] MEDS ORDERED: Sulfamethox/Trimethoprim SS 400/80* TAB PO SCH (09:00)
[2018-03-20] MEDS ORDERED: IRBESARTAN 75 MG PO SCH ×2 (09:00)
[2018-03-20] MEDS ORDERED: Omeprazole CAP* 20 MG PO SCH (09:00)
[2018-03-20] MEDS ORDERED: Tacrolimus CAP(*) 1 MG PO SCH (09:00)
[2018-03-20] MEDS ORDERED: Aspirin EC TAB* 81 MG TAB.EC PO SCH (09:00)
[2018-03-20] MEDS: Sodium Bicarbonate (ANTACID)* 650 MG TAB PO SCH ×2 (09:36→12:37)
--- NOTE | 2018-03-20 10:07 | RAD ---
INDICATION: Chest pain COMPARISON: None TECHNIQUE: A single day SPECT protocol was utilized. Rest images were acquired following the intravenous injection of 10.6 millicuries of technetium 99m tetrofosmin. Exercise stress images were acquired following the intravenous administration of 25.3 millicuries of technetium 99m tetrofosmin. There are mild limitations due to lack of CT attenuation which could not be obtained due to claustrophobia. The patient was exercised to a peak heart rate of 143 which is 87 of age predicted maximum. FINDINGS: There are no definitive defects of the stress-induced or fixed nature. There is presumed mild diaphragmatic attenuation artifact The cardiac chamber size is normal. There are no wall motion abnormalities. The ejection fraction is calculated at 65 percent during stress. IMPRESSION: NO DEFINITIVE DEFECTS OF THE STRESS-INDUCED OR FIXED NATURE ASSESSMENT: LOW-RISK Based on imaging criteria from ACC/AHA 2002 Guideline Update for the Management of Patients With Chronic Stable Angina Table 23. Noninvasive Risk Stratification.
[2018-03-20] MEDS: Mycophenolate Mofetil CAP(*) 250 MG PO SCH (11:17)
[2018-03-20 11:28] VITALS: BP 153/98
[2018-03-20] MEDS ORDERED: Labetalol TAB* 200 MG PO SCH (18:00)
--- NOTE | 2018-03-20 22:45 | DS ---
CC: Raudel Soler NP * DISCHARGE SUMMARY: DATE OF ADMISSION: 03/19/18 DATE OF DISCHARGE: 03/20/18 PRINCIPAL DISCHARGE DIAGNOSES: 1. Dental infection. 2. Chest pain. 3. Constipation. SECONDARY DISCHARGE DIAGNOSES: 1. ? human immunodeficiency virus. 2. Renal transplant. 3. Hypertension. 4. Gastroesophageal reflux disease. 5. Anemia. HOSPITAL COURSE BY PROBLEM: 1. Tooth infection. Mr. Cordova came to the emergency department with both mouth pain and chest pain. He reported that his teeth have recently been falling out and he has not been to the dentist in many years due to anxiety about dentists. He thinks he has been having some fevers and chills at home, but never checked his temperature. In the emergency department, he was noted to have poor dentition and a maxillofacial CT was obtained. It showed many fractured and missing teeth and a periapical lucency surrounding left lower tooth with recommendation of a formal dental examination. There was no drainable fluid collection. He was started on clindamycin. He remained afebrile without leukocytosis. He had no trouble opening and closing his mouth. No dysphagia and he has an appointment with a dentist this afternoon that he is going directly to at the time of discharge. I am discharging him on p.o. clindamycin and recommending that he continue this at home. 2. Chest pain. Mr. Cordova reported typical chest pain at the time of admission and given his risk factors, he remained inpatient for a stress test. Stress test was performed on 03/20/18 and was low risk with no defects of the stress induced or fixed nature. His chest pain is thought to be gastrointestinal in nature as he reports a long history of GERD as well as recurrent constipation. 3. Constipation. Mr. Cordova has not moved his bowels for 2 days and usually moves his bowels every day. I am discharging him on MiraLAX and instructions to consume a high-fiber diet. 4. ? HIV. Mr. Cordova is on HAART medications; however, he does not know of a history of HIV and HIV test is pending at the time of discharge. This needs to be followed up and he has an appointment with his PCP in 3 days. 5. History of renal transplant. No evidence of rejection. His renal function is at baseline. He was continued on Prograf and mycophenolate. 6. Disposition. Mr. Cordova is being discharged to home on 03/20/18 with his . He is to follow up with a dentist today and to see Raudel Soler NP, in 3 days. An HIV test is pending and needs to be followed up at that time. Again, he is on antiretroviral therapy, so presumably this has been diagnosed and discussed with him at some time, but should be followed up on. TIME SPENT: Forty minutes was spent on this discharge with over half the time face- to-face with the patient. [id number]/[facility] #: [id number] MTDD
== END 2018-03-20 16:00 | disposition home or self-care (01) ==
LOC: ED 08:57 → MEDTELE 14:07
PROVIDERS: ADMIT Internal Medicine; ATTEND Internal Medicine
DX: R07.9 Chest pain, unspecified (principal); K04.7 Periapical abscess without sinus; K59.00 Constipation, unspecified; Z94.0 Kidney transplant status; N18.6 End stage renal disease; N18.9 Chronic kidney disease, unspecified; K21.9 Gastro-esophageal reflux disease without esophagitis; D64.9 Anemia, unspecified; Z79.899 Other long term (current) drug therapy; Z88.1 Allergy status to other antibiotic agents; Z88.8 Allergy status to other drugs, medicaments and biological substances; E87.5 Hyperkalemia; Z83.3 Family history of diabetes mellitus; I12.0 Hypertensive chronic kidney disease with stage 5 chronic kidney disease or end stage renal disease; R94.31 Abnormal electrocardiogram [ECG] [EKG]
CPT/HCPCS: 36415; 70486; 71045; 78452; 80048; 80053; 80061; 83036; 83605; 83735; 84484; 85025; 85610; 86140; 87040; 87389; 93005; 93017; 96361; 96365; 96366; 96375; 96376; 99284; A9270-GY; A9502; G0378; G0475; J1170; J2270; J2405; J7507

== ENCOUNTER 2018-11-16 06:56 | Observation (INO) | payer MEDICARE, MEDICAID ==
[2018-11-16] MEDS ORDERED: Ondansetron INJ* 2 MG/ML VIAL IV ONE (07:28)
[2018-11-16] MEDS ORDERED: fentaNYL* 50 MCG/ML 2 ML VIAL (100 MCG VIAL) IV ONE (07:28)
[2018-11-16] MEDS ORDERED: Al Hydrox/Mg Hydrox/Simet LIQ* 30 ML UDC PO ONE (07:28)
[2018-11-16] MEDS ORDERED: Famotidine IV* 10 MG/ML 2 ML (20 mg) IVPB ONE (07:28)
--- NOTE | 2018-11-16 07:39 | ED ---
HPI Febrile Illness - HPI Summary HPI Summary: Pt is a 58 y/o M presenting to the ED with a chief complaint of a febrile illness. The pt states about one week ago he experienced intermittent rectal bleeding for two days, and then it subsided. About two days ago, he notes chills , subjective fevers, abd pain, bodyaches, lightheaded, dizziness, diarrhea, rhinorrhea, chest pain described as tightness, and SOB. He denies current rectal bleeding, urinary sx including dark urine, dysuria, burning, or pain in his testicles or penis, as well as any rash or nausea. He has hx of HIV which he contracted from his over 10yrs ago, and kidney issues due to uncontrolled HTN, including peritoneal dialysis and a transplant. He denies hx of asthma, UTI, or kidney stones. He is currently sexually active with one partner, and reports using a condom every time. 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 - History of Current Complaint Chief Complaint: EDGeneral Time Seen by Provider: 11/16/18 07:11 Hx Obtained From: Patient Onset/Duration: Started Days Ago, Still Present Timing: Constant, Lasting Days Initial Severity: Moderate Current Severity: Moderate Pain Intensity: 7 Pain Scale Used: 0-10 Numeric Aggravating Factors: Nothing Alleviating Factors: Nothing Associated Signs and Symptoms: Chills, Diarrhea, Dizziness, Myalgia, Nausea, SOB , Other: - abd pain, rhinorrhea, chest pain, lightheaded, dizziness - Additional Pertinent History Primary Care Physician: [id number] - Allergy/Home Medications Allergies/Adverse Reactions: Allergies Allergy/AdvReac Type Severity Reaction Status Date / Time acetaminophen [From Tylenol] Allergy See Comment Verified 03/19/18 09:00 ciprofloxacin Allergy See Comment Verified 03/19/18 09:00 latex Allergy Rash Verified 03/19/18 09:00 Home Medications: Home Medications Multivitamins/Minerals TAB* [Theragran/minerals TAB*] 1 tab PO QAM 11/16/18 [ History Confirmed 11/16/18] PMH/Surg Hx/FS Hx/Imm Hx Previously Healthy: No Endocrine/Hematology History: Reports: Hx Anemia Denies: Hx Diabetes Cardiovascular History: Reports: Hx Angina, Hx Hypertension Denies: Hx Pacemaker/ICD Respiratory History: Reports: Hx Asthma - as a child GI History: Reports: Hx Gastroesophageal Reflux Disease, Hx Irritable Bowel, Hx Ulcer - a few no problems, Other GI Disorders - umibical hernia, polyps History: Reports: Hx Dialysis, Other Problems/Disorders - enlarged prostate, kidney transplant 2006 Denies: Hx Kidney Stones Musculoskeletal History: Reports: Hx Arthritis, Hx Rheumatoid Arthritis, Hx Tendonitis - arms occassionally Sensory History: Reports: Hx Contacts or Glasses Denies: Hx Cataracts, Hx Glaucoma, Hx Hearing Aid Opthamlomology History: Reports: Hx Contacts or Glasses Denies: Hx Cataracts, Hx Glaucoma Neurological History: Reports: Hx Headaches - occassionally, Hx Migraine - off and on, Other Neuro Impairments/Disorders - neuropathy on feet Psychiatric History: Reports: Hx Anxiety, Hx Depression Denies: Hx Panic Disorder - Cancer History Hx Chemotherapy: No - Surgical History Surgery Procedure, Year, and Place: KIDNEY TRANSPLANT 2006 in [facility],hernia Hx Anesthesia Reactions: No Infectious Disease History: No Infectious Disease History: Reports: Hx Human Immunodeficiency Virus (HIV) - per prior record Denies: Traveled Outside the [place] in Last 30 Days - Family History Known Family History: Positive: Hypertension, Diabetes - Social History Alcohol Use: None Hx Substance Use: No Substance Use Type: Reports: None Hx Tobacco Use: Yes Smoking Status (MU): Former Smoker Amount Used/How Often: smoked for 15-20 years 1ppd Review of Systems Positive: Fever, Chills Positive: Nasal Discharge Positive: Chest Pain Positive: Shortness Of Breath Positive: Abdominal Pain, Diarrhea, Nausea. Negative: Vomiting, Other - rectal bleeding Negative: burning, dysuria, other - pain in testicles/penis, dark urine Positive: Myalgia Negative: Rash Neurological: Other - lightheaded, dizziness All Other Systems Reviewed And Are Negative: Yes Physical Exam - Summary Physical Exam Summary: Constitutional: Well-developed, Well-nourished, Alert. (-) Distressed Skin: Warm, Dry HENT: Normocephalic; Atraumatic Eyes: Conjunctiva normal Neck: Musculoskeletal ROM normal neck. (-) JVD, (-) Stridor, (-) Tracheal deviation Cardio: Rhythm regular, rate normal, Heart sounds normal; Intact distal pulses; The pedal pulses are 2+ and symmetric. Radial pulses are 2+ and symmetric. Pulmonary/Chest wall: Effort normal. (-) Respiratory distress, (-) Wheezes, (-) Rales Abd: Soft, (-) tenderness, (-) Distension, (-) Guarding, (-) Rebound. Mild protuberance secondary to weight, and multiple scars from prior surgeries. Musculoskeletal: (-) Edema Neuro: Alert, Oriented x3 Psych: Mood and affect Normal Triage Information Reviewed: Yes Vital Signs On Initial Exam: Initial Vitals Temp Pulse Resp BP Pulse Ox 97.9 F 71 20 206/118 99 11/16/18 06:59 11/16/18 06:59 11/16/18 06:59 11/16/18 06:59 11/16/18 06:59 Vital Signs Reviewed: Yes Diagnostics - Vital Signs Vital Signs Temp Pulse Resp BP Pulse Ox 11/16/18 06:59 97.9 F 71 20 206/118 99 - Laboratory Result Diagrams: 11/16/18 07:41 11/16/18 15:28 Lab Statement: Any lab studies that have been ordered have been reviewed, and results considered in the medical decision making process. - Radiology CXR Radiology Interpretation Completed By: Radiologist Summary of Radiographic Findings: CXR shows stigmata of COPD. No acute cardiopulmonary process evident. ED physician has reviewed this report. ABD XR Radiology Interpretation Completed By: Radiologist Summary of Radiographic Findings: Abd XR shows mildly to moderately dilated loops of small bowel in the RUQ. Early or partial obstruction is not excluded. ED physician has reviewed this report. - CT Abd/pelv CT CT Interpretation Completed By: Radiologist Summary of CT Findings: No abnormally dilated loops of bowel are noted. Normal appendix. No hydronephrosis of the right lower quadrant transplanted kidney. ED physician has reviewed this report. - EKG 0740 Cardiac Rate: NL - 69bpm EKG Rhythm: Sinus Rhythm ST Segment: Non-Specific Ectopy: None EKG Comparison: No Significant Change - from 03/20/18 Summary of EKG Findings: An EKG at 0740 shows NSR 69bpm with notable ST abnormalities in the precordial leads with J point. There is concern for infarct but it is old, from 03/20/18. Course/Dx - Course Course Of Treatment: Pt is a 58 y/o M presenting to the ED with a chief complaint of a febrile illness. He reports an episode of rectal bleeding for two days last week, which subsided, but he developed sx including chills, subjective fevers, abd pain, bodyaches, lightheaded, dizziness, diarrhea, rhinorrhea, chest pain described as tightness, and SOB. He denies current rectal bleeding, urinary sx including dark urine, dysuria, burning, or pain in his testicles or penis, as well as any rash or nausea. He has hx of HIV and kidney issues from HTN including kidney transplant and dialysis, and reports that his creatinine levels are usually between 2 and 3. Pts troponin is negative, lactic acid is low, creatinine is on higher side at 2.8 but is c/w baseline, and potassium is at 5.3. There are trace leukocytes in the pt's urine. Other abnormal lab work is not pertinent to present illness. An EKG at 0740 shows NSR 69bpm with notable ST abnormalities in the precordial leads with J point. There is concern for infarct but it is old, from 03/20/18. The pt's Influenza A&B is negative. Abd XR shows mildly to moderately dilated loops of small bowel in the RUQ. Early or partial obstruction is not excluded. Based on the results of the abd XR a CT a/p has been ordered. CXR shows stigmata of COPD. No acute cardiopulmonary process evident. The pt will be given barium for the CT a/p d/t hives rxn to regular contrast. The same protocol will be used and the pt will still not receive IV contrast. CT a/p shows no abnormally dilated loops of bowel are noted. Normal appendix. No hydronephrosis of the right lower quadrant transplanted kidney. I spoke with Dr. Eldridge who will be accepting the pt for admission with a dx of intractable abd pain. The pt is stable and agreeable with this plan. - Diagnoses Provider Diagnoses: Intractable abdominal pain Discharge - Sign-Out/Discharge Documenting (check all that apply): Patient Departure - Discharge Plan Condition: Stable Disposition: ADMITTED TO [facility] Referrals: Yessenia Wright MD [Primary Care Provider] - - Billing Disposition and Condition Condition: STABLE Disposition: Admitted to [facility] - Attestation Statements Document Initiated by Scribe: Yes Documenting Scribe: Cara Hastings Provider For Whom Scribe is Documenting (Include Credential): Lalito Mao MD. Scribe Attestation: I, Cara Hastings, scribed for Lalito Mao MD. on 11/16/18 at 1654. Scribe Documentation Reviewed: Yes Provider Attestation: The documentation as recorded by the eloinaibe, Cara Hastings accurately reflects the service I personally performed and the decisions made by me, Lalito Mao MD. Status of Scribe Document: Viewed Consult Consult: [id number] - I spoke with Dr. Eldridge who will be accepting the pt for admission with a dx of intractable abd pain.
[2018-11-16 07:56] LABS: ABS Basophils 0 10^3/ul (0-0.2); ABS Eosinophils 0.3 10^3/ul (0-0.6); ABS Lymphocytes 2.2 10^3/ul (1.0-4.8); ABS Monocytes 0.5 10^3/ul (0-0.8); ABS Nucleated RBC 0 10^3/ul; Eosinophil % 4.7 %; Hematocrit 38 % (36-46); Hemoglobin 12.6 g/dL (14.0-18.0); Lymphocyte % 36.6 %; Mean Corpuscular HGB Conc 33 g/dL (31-36); Mean Corpuscular Hemoglobin 32 pg (27-31); Mean Corpuscular Volume 96 fL (80-94); Mean Platelet Volume 8.3 fL (7.4-10.4); Nucleated Red Blood Cells % 0.1; Platelet Count 189 10^3/uL (150-450); Red Blood Count 3.94 10^6 /uL (4.18-5.48); Red Cell Distribution Width 14 % (10.5-15)
[2018-11-16] MEDS ORDERED: Lactated Ringers 1000 ML Bag* 1,000 ML IV SCH (08:00)
[2018-11-16 08:15] LABS: Albumin 4.4 g/dL (3.2-5.2); Albumin/Globulin Ratio 1.6 (1-3); BUN/Creatinine Ratio 12.7 (8-20); C Reactive Protein 1.24 mg/L (<8.01); Calcium 10.5 mg/dL (8.6-10.3); EGFR Non-African American 23.2 (>60); Globulin 2.7 g/dL (2-4); Magnesium 1.8 mg/dL (1.9-2.7); Total Bilirubin 0.3 mg/dL (0.2-1.0); Total Protein 7.1 g/dL (6.4-8.9)
[2018-11-16 08:16] LABS: Potassium 5.3 mmol/L (3.5-5.0)
[2018-11-16 08:18] LABS: BNP 12 pg/mL (<=100)
[2018-11-16 08:44] LABS: Influenza A Molecular NEGATIVE (Negative); Influenza B Molecular NEGATIVE (Negative)
[2018-11-16 09:14] LABS: Urine Appearance Cloudy; Urine Bilirubin Negative (Negative); Urine Blood Negative (Negative); Urine Color Yellow; Urine Glucose Negative (Negative); Urine Ketones Negative (Negative); Urine Nitrite Negative (Negative); Urine Protein 1+(30 mg/dL) (Negative); Urine Specific Gravity 1.016 (1.010-1.030); Urine Urobilinogen Negative (Negative)
[2018-11-16] MEDS ORDERED: Morphine PF AMP (1 MG/ML)* 10 MG/10 ML AMP IV ONE (09:33)
[2018-11-16 09:38] LABS: Urine Red Blood Cell Absent (Absent); Urine White Blood Cell Absent (Absent)
[2018-11-16] MEDS ORDERED: Morphine 4 MG/ML VIAL (1 ml) 4 MG/ML VIAL IV ONE (09:40)
[2018-11-16] MEDS ORDERED: Sucralfate SUSP 1 GM/10 ml 10 ML UDC PO ONE (13:34)
[2018-11-16] MEDS ORDERED: NS 0.9% 1000 ML** 1,000 ML IV ONE (13:35)
[2018-11-16 16:08] LABS: BUN/Creatinine Ratio 12.6 (8-20); Calcium 9.7 mg/dL (8.6-10.3); EGFR African American 29.7 (>60); EGFR Non-African American 24.6 (>60)
[2018-11-16 16:09] LABS: Potassium 5.6 mmol/L (3.5-5.0)
[2018-11-16] MEDS ORDERED: Labetalol TAB* 200 MG PO SCH (18:00)
[2018-11-16] MEDS ORDERED: EFAVIRENZ PO SCH (18:00)
[2018-11-16] MEDS ORDERED: Atorvastatin* 10 MG TAB PO SCH (18:00)
[2018-11-16] MEDS ORDERED: LAMIVUDINE 100 MG PO SCH (18:00)
[2018-11-16] MEDS ORDERED: ABACAVIR 300 MG PO SCH (18:00)
[2018-11-16] MEDS ORDERED: Tacrolimus CAP(*) 0.5 MG PO SCH (18:00)
[2018-11-16] MEDS ORDERED: Tacrolimus CAP(*) 1 MG PO SCH (18:00)
[2018-11-16] MEDS ORDERED: Patiromer POWDER* 8.4 GM PAK PO ONE (18:30)
[2018-11-16] MEDS: Mycophenolate Mofetil CAP(*) 250 MG PO SCH (19:35)
--- NOTE | 2018-11-16 20:59 | HP ---
CC: Dr. Sheth; Dr. Morales; Raudel oSler NP* HISTORY AND PHYSICAL: DATE OF ADMISSION: 11/16/18 PROVIDER: Leslee Chavez NP. PRIMARY CARE PROVIDER: Raudel Soler NP. ATTENDING PHYSICIAN WHILE IN THE HOSPITAL: Steven Eldridge MD* (dictated by Leslee Chavez NP). CHIEF COMPLAINT: Abdominal pain. HISTORY OF PRESENT ILLNESS: Mr. Cordova is a 58-year-old male with a past medical history significant for renal transplant in 2003 due to hypertension, chronic anemia, GERD, hyperlipidemia, who presented to the emergency room with complaints of abdominal pain. The patient reports that he has had abdominal pain since 2005, but reports that his pain has become progressively worse over the past week to the point that he reports he is unable to tolerate food or liquids. He reports that every time he eats or drinks something, he develops cramping pain in his upper abdomen and then has diarrhea. The patient also reports that he was feeling chills with body aches over the past 3 days. Due to his history of transplant and HIV, the patient presented to the emergency room for further evaluation. The patient does report that he takes 1 to 2 Aleve as needed for pain, but has not taken any of this in the last week. He denies any spicy foods. Denies any caffeine intake. He does report he does eat unhealthy and fatty foods. Denies any intolerance to lactose. He also reports that when he wipes, he has had some bright red blood on the tissue, but the stool has been light brown to dark brown. He denied any black or tarry stools. Denied any vomiting or coffee-ground emesis or blood. While in the emergency room, the patient had routine lab work drawn. He had a CT of his abdomen and pelvis that did not show any acute pathology. He was given several doses of pain medication and Maalox and continued to have upper abdominal pain. He then received a dose of Carafate. After his dose of Carafate, his abdominal pain subsided and he felt better. He was able to tolerate liquids and food without any pain. He did not have any episodes of diarrhea while in the emergency room. The patient was noted to have a potassium level of 5.3 on admission to the emergency room. Repeat potassium level was 5.6. Due to the increase of his potassium, he will be admitted under observation for hyperkalemia and abdominal pain. PAST MEDICAL HISTORY: Significant for: 1. HIV. 2. Renal transplant in 2003. 3. Hypertension, uncontrolled and chronic. 4. Chronic anemia. 5. GERD. 6. Hyperlipidemia. PAST SURGICAL HISTORY: 1. Renal transplant. 2. Trigger finger release. 3. Hernia repair. 4. Peritoneal dialysis catheter placed and removed in 2005. MEDICATIONS: Home medications include: 1. Multivitamin 1 tablet p.o. daily. 2. Abacavir 600 mg p.o. at bedtime. 3. Tacrolimus 1 mg, 3 mg in the morning and 2.5 mg in the p.m. 4. Bactrim SS 400/80 one tab p.o. daily. 5. Rosuvastatin 5 mg p.o. q.p.m. 6. CellCept 250 mg p.o. b.i.d. 7. Labetalol 200 mg p.o. q.p.m. 8. Irbesartan 75 mg p.o. q.a.m. 9. Sustiva 600 mg p.o. q.p.m. 10. Lamivudine 100 mg p.o. q.p.m. ALLERGIES: 1. ACETAMINOPHEN. 2. CIPROFLOXACIN. 3. LATEX. FAMILY HISTORY: Father in a car crash, unknown health problems. Mother has dementia and diabetes and is still alive. Sister of complications due to diabetes. The patient does report a family history of cancer, diabetes, hypertension, hyperlipidemia. SOCIAL HISTORY: The patient reports that he smoked 2 to 3 packs a day for approximately 20 years. He reports that he quit smoking approximately 2 years ago. He denies any alcohol or illicit drug use. The patient currently works part-time for [employer]. He has a fiancee and 8 children. The patient's surrogate decision maker in the event he is unable to make his own decisions is his fiancee, Nancy Anderson. He is a full code. REVIEW OF SYSTEMS: A 14-point review of systems was completed. All pertinent positives were mentioned in the HPI. All others were negative. PHYSICAL EXAMINATION GENERAL: At this time, Mr. Cordova is a 58-year-old male. He appears his stated age, resting comfortably on the stretcher in the emergency room. He does not appear to be in any acute distress. HEENT: Head is atraumatic, normocephalic. Eyes: EOMs are intact. Sclerae anicteric and not pale. Oral mucosa appeared to be moist. NECK: Supple. LUNGS: Clear to auscultation bilaterally. No wheezes, rales, or rhonchi. CARDIAC: S1, S2. Regular rate and rhythm. No murmurs, rubs, or gallops. ABDOMEN: Soft. He does have some upper epigastric tenderness with palpation. Bowel sounds are present x4. NEUROLOGIC: He is awake, alert, oriented x3. Cranial nerves II through XII are grossly intact. There are no gross focal deficits. PSYCHIATRIC: He is pleasant and cooperative. SKIN: Warm, dry, and intact. There are no rashes, lesions, or open sores. DIAGNOSTIC STUDIES AND LABORATORY DATA: WBCs were 6.0, RBCs 3.94, hemoglobin 12.6, hematocrit was 38, platelet count 189. APTT was 37.7. Sodium 137, potassium 5.3, chloride 114, carbon dioxide was 15, anion gap was 8, BUN was 36 , creatinine 2.84 which is slightly elevated above his baseline, glucose 105. Lactic acid 0.4. Calcium 10.5. Magnesium 1.8. Total bilirubin 0.30. ASTs were 19, ALTs were 22, alkaline phosphatase was 120. Ammonia level 46. Troponin 0.00. C-reactive protein was 1.24. Lipase was 70. Repeat potassium level was 5.6, chloride 117, and carbon dioxide was 16. BUN was 34 and creatinine 2.70. He had an abdominal x-ray, radiologist's impression: Mild to moderately dilated loops of small bowel in the right upper quadrant, early to partial obstruction is not excluded. He had a CT of the abdomen and pelvis, radiologist 's impression: No abnormally dilated loops of bowel, normal appendix, no hydronephrosis of the right lower quadrant transplanted kidney. He had a chest x-ray, radiologist's impression: Stigmata for probable obstructive pulmonary disease, no acute cardiopulmonary process was evident. He had an electrocardiogram, which showed sinus rhythm at a rate of 69. ASSESSMENT AND PLAN: Mr. Cordova is a 58-year-old male with past medical history significant for human immunodeficiency virus, renal transplant, anemia, hyperlipidemia, who presented to the emergency room complaining of upper abdominal pain, worse with eating and drinking, unable to tolerate food and fluids. He will be admitted under observation for abdominal pain and hyperkalemia. 1. Abdominal pain. I suspect that his abdominal pain could be related to gastritis versus ulcer as the pain is complicated by food and fluids associated with cramping feeling. The patient denies any blood in his vomit or coffee- ground emesis. He denies any black or tarry stools. At this time, I will place him on Carafate. He did receive a dose of Carafate in the emergency room , which he reports completely resolved his abdominal pain. He also received several doses of morphine and fentanyl in the emergency room as well. I will continue him on Carafate q.i.d. during this hospitalization. I would recommend that the patient follow up with a cs associate as an outpatient for further evaluation of his upper abdominal pain and possible need for an upper endoscopy. 2. Hyperkalemia. The patient did have potassium level of 5.3 on admission. Repeat potassium level was 5.6. I will give him a dose of patiromer to help reduce his potassium level. We will repeat a BMP in the a.m. I suspect his hyperkalemia could be related to the combination of irbesartan and Bactrim, though the patient reports that he has been on this combination of medications for approximately 5 months, but is within the differential. 3. Hypertension. We will continue him on his irbesartan and labetalol as previously prescribed. 4. Chronic kidney disease, status post renal transplant. The patient's creatinine is mildly elevated above his baseline. He does report that when he saw his renal transplant physician in [facility], [place] recently, he reported that his renal function was elevated at that time as well. We will continue to monitor his renal function and avoid any further nephrotoxic medications. 5. Human immunodeficiency virus. The patient reports that his levels are undetectable at this time. We will continue on his home HIV medications as previously prescribed. 6. FEN: The patient can have a low-sodium diet. 7. Code status: He is a full code. 8. DVT prophylaxis: I will encourage ambulation. He only scores 1. 9. Disposition: The patient will be admitted to medical floor on telemetry. TIME SPENT: Time spent on this admission was approximately 60 minutes, greater than half the time was spent at the bedside reviewing events thus far to this hospitalization, performing my physical exam, and reviewing my plan of care. I have discussed this with my attending Dr. Steven Eldridge, he is in agreement with my plan. LESLEE CHAVEZ, MALORIE [id number]/[facility] #: [id number] RL
[2018-11-16] MEDS ORDERED: Magnesium Sulfate 1 GM IV* 1 GM/100 ML BAG IV ONE (21:00)
[2018-11-16] MEDS: Sucralfate SUSP 1 GM/10 ml 10 ML UDC PO SCH (23:48)
[2018-11-17 07:08] LABS: BUN/Creatinine Ratio 11.7 (8-20); Calcium 10.2 mg/dL (8.6-10.3); EGFR African American 30.2 (>60); Magnesium 1.9 mg/dL (1.9-2.7)
[2018-11-17 07:13] LABS: Potassium 5.3 mmol/L (3.5-5.0)
[2018-11-17] MEDS: Sucralfate SUSP 1 GM/10 ml 10 ML UDC PO SCH ×3 (07:23→15:27)
[2018-11-17] MEDS ORDERED: Patiromer POWDER* 8.4 GM PAK PO SCH (08:00)
[2018-11-17] MEDS ORDERED: Patiromer POWDER* 8.4 GM PAK PO ONE (08:52)
[2018-11-17] MEDS ORDERED: Tacrolimus CAP(*) 1 MG PO SCH (09:00)
[2018-11-17] MEDS ORDERED: Sulfamethox/Trimethoprim SS 400/80* TAB PO SCH (09:00)
[2018-11-17] MEDS ORDERED: Losartan TAB* 25 MG PO SCH (09:00)
[2018-11-17] MEDS ORDERED: Sodium Bicarbonate (ANTACID)* 650 MG TAB PO SCH (09:00)
[2018-11-17] MEDS ORDERED: Multivitamins/Minerals TAB PO SCH (09:00)
[2018-11-17] MEDS ORDERED: Pantoprazole TAB * 40 MG TAB PO SCH (09:00)
[2018-11-17] MEDS: Mycophenolate Mofetil CAP(*) 250 MG PO SCH (09:02)
[2018-11-17 14:35] LABS: BUN/Creatinine Ratio 12.8 (8-20); Calcium 10.5 mg/dL (8.6-10.3); EGFR African American 31.5 (>60)
[2018-11-17 14:44] LABS: Potassium 5.1 mmol/L (3.5-5.0)
[2018-11-17 15:25] VITALS: BP 141/87
--- NOTE | 2018-11-18 01:27 | DS ---
DISCHARGE SUMMARY: DATE OF ADMISSION: 11/16/18 DATE OF DISCHARGE: 11/17/18 ADMITTING PROVIDER: Leslee Chavez NP. ATTENDING PHYSICIAN THE DAY OF DISCHARGE: Steven Eldridge MD. PRIMARY CARE PROVIDER: Raudel Soler NP. OUTPATIENT INFECTIOUS DISEASE DOCTOR: Dr. Gadiel Rachel, [facility], [place], [place]. FINANCIAL UNDERWRITER: Dr. Mario Mojica, [facility], [place], [place]. CHIEF COMPLAINT: Abdominal pain, diarrhea, chills, body aches. PRINCIPAL DIAGNOSES: Hyperkalemia; suspected gastroesophageal reflux disease with potential erosive gastritis. HISTORY OF PRESENT ILLNESS/HOSPITAL COURSE: Preston Cordova is a 58-year-old male with past medical history significant for renal transplant in 2003 ( secondary to hypertension), chronic anemia, GERD, hyperlipidemia, HIV on HAART therapy. He also has chronic kidney disease stage 4 with baseline creatinine approximately 2.6 and GFR about 25. He for the last month has had complaint of loosened stools from his baseline to the point of diarrhea and some epigastric abdominal pain. The week prior to admission, he had some body aches and chills and then this returned on the day of admission. Please see [facility] Leslee Chavez for full details. Every time he ate or drank, he developed cramping pain in his upper abdomen and then the diarrhea. He reported occasionally 1 to 2 Aleve as needed for pain but none in the last week. He had some bright red blood on his toilet paper, the stool had been light brown to dark brown. He denied any nausea or vomiting. In the [facility] Emergency Room, he had an abdominal x -ray, which showed [id number] dilated loops of small bowel in the right upper quadrant earlier, a partial obstruction is not excluded. He then got a CT of abdomen and pelvis with p.o. but not IV contrast, which showed no abnormally dilated loops of bowel were noted, normal appendix, no hydronephrosis of the right lower quadrant transplanted kidney. He was given Carafate in the emergency room and additionally had Pepcid IV in the emergency room. The Carafate seemed to resolve his pain and was potentially going to be discharged from the emergency room, but his potassium was elevated at 5.3 and on recheck increased further to 5.6 after the emergency room gave him 1 L of lactated Ringers. His creatinine was slightly above his last in our system at 2.84, up from 2.1 on 08/08/18. He was given Patiromer and admitted to observation for his hyperkalemia. EKG showed no T waves. Potassium decreased to 5.3 and then 5.1 on hospital day #2 in the morning and afternoon respectively after he did get another dose of Patiromer and finally eventually had a bowel movement after some ambulation around the unit. His flu swabs were negative. Creatinine downtrended 2.57. Carbon dioxide kadi of 14 on the morning of hospital day #2 and he was started on sodium bicarbonate 650 p.o. b.i.d. We talked to Dr. Rachel, his HIV doctor, to update about the case and the patient also contacted. Dr. Mojica, his cytopathologist. He related that he had been on Bactrim and irbesartan for about [address] Mojica strongly suggested that he stay on these medications. He is being discharged with further daily Patiromer. Of note, Kayexalate is not available due to shortage. Of note, he was also prescribed Protonix, but he refused that on hospital day #2 and unclear if he would take that as an outpatient, though it was recommended and prescribed for him. He is recommended to follow up with his local primary care, Raudel Soler and get associated with a GI doctor for potential EGD if symptoms do not resolve with the Carafate and Protonix. Of note, he had a urine culture that was negative. He had alk phos of 120, LFTs were otherwise within normal limits. BNP was 12, lipase was 70. He had a chest x-ray, which shows stigmata of probable chronic obstructive pulmonary disease. No acute cardiopulmonary process evident. DISCHARGE MEDICATIONS: Include: 1. Abacavir 600 mg p.o. q.p.m. 2. Efavirenz 600 mg p.o. q.p.m. 3. Irbesartan 75 mg p.o. q.a.m. 4. Labetalol 200 mg p.o. q.p.m. 5. Lamivudine 100 mg p.o. q.p.m. 6. Theragran/multivitamin 1 tablet p.o. q.a.m. 7. CellCept 250 mg p.o. b.i.d. 8. Protonix 40 mg p.o. daily (new). 9. Patiromer 8.4 mg p.o. daily (new) (of note, he was given 5 packets from the inpatient pharmacy as there would have been a delay for his home [facility] to obtain this). 10. Crestor 5 mg p.o. daily. 11. Sodium bicarbonate 650 mg p.o. b.i.d. (new). 12. Sucralfate p.o. with meals and q.h.s. (new) 40 tabs. 13. Bactrim 400 mg p.o. q.a.m. 14. Tacrolimus 2 mg in the morning and 2.5 mg in the p.m. FOLLOWUP: The patient should follow up with Dr. Mojica, his cytopathologist and Raudel Soler at the next week. Consideration to refer to hair baler if symptoms are not improved or worsening. She should follow with Dr. Rachel and if local care by cytopathologist needed, Dr. Sheth. Of note, tacrolimus levels were added on to ED labs that are sent out and are pending. DISCHARGE DIET: Heart healthy, renal (unchanged). DISPOSITION: Home. CONDITION: Improved. TIME SPENT ON DISCHARGE: 50 minutes. [id number]/[facility] #: [id number] MTDD
== END 2018-11-17 16:10 | disposition home or self-care (01) ==
LOC: ED 06:56 → MED 16:28
PROVIDERS: ADMIT Internal Medicine; ATTEND Internal Medicine
DX: E87.5 Hyperkalemia (principal); K21.9 Gastro-esophageal reflux disease without esophagitis; N18.4 Chronic kidney disease, stage 4 (severe); I12.9 Hypertensive chronic kidney disease with stage 1 through stage 4 chronic kidney disease, or unspecified chronic kidney disease; Z94.0 Kidney transplant status; R10.9 Unspecified abdominal pain; R19.7 Diarrhea, unspecified; E78.5 Hyperlipidemia, unspecified; Z21 Asymptomatic human immunodeficiency virus [HIV] infection status; Z87.891 Personal history of nicotine dependence; D64.9 Anemia, unspecified
CPT/HCPCS: 36415; 71046; 74019; 74176; 80048; 80053; 81003; 81015; 82140; 83605; 83690; 83735; 83880; 84484; 85025; 85730; 86140; 87086; 93005; 96365; 96375; 96376; 99285; A9270-GY; G0378; J2270; J2274; J2405; J3010; J3475; J7507

== ENCOUNTER 2020-08-23 12:23 | Inpatient (IN) ==
[2020-08-23 13:16] LABS: ABS Eosinophils 0.2 10^3/ul (0-0.6); ABS Lymphocytes 1.6 10^3/ul (1.0-4.8); ABS Monocytes 0.5 10^3/ul (0-0.8); ABS Neutrophils 3.5 10^3/ul (1.5-7.7); Eosinophil % 2.9 %; Hematocrit 35 % (42-52); Hemoglobin 11.9 g/dL (14.0-18.0); Lymphocyte % 27.5 %; Mean Corpuscular HGB Conc 34 g/dL (31-36); Mean Corpuscular Hemoglobin 31 pg (27-31); Mean Corpuscular Volume 90 fL (80-94); Mean Platelet Volume 8.3 fL (7.4-10.4); Nucleated Red Blood Cells % 0.1; Platelet Count 196 10^3/uL (150-450); Red Blood Count 3.88 10^6 /uL (4.18-5.48); Red Cell Distribution Width 14 % (10-15); White Blood Count 5.7 10^3/uL (3.5-10.8)
[2020-08-23 13:22] LABS: INR 1.03 (0.82-1.09)
[2020-08-23 13:39] LABS: ALT 22 U/L (7-52); AST 25 U/L (13-39); Albumin 4.3 g/dL (3.2-5.2); Albumin/Globulin Ratio 1.4 (1-3); Alkaline Phosphatase 107 U/L (34-104); Anion Gap 6 mmol/L (2-11); BUN/Creatinine Ratio 10.3 (8-20); Blood Urea Nitrogen 28 mg/dL (6-24); CO2 Carbon Dioxide 23 mmol/L (22-32); Calcium 11.1 mg/dL (8.6-10.3); Chloride 108 mmol/L (101-111); EGFR African American 29.4 (>60); EGFR Non-African American 24.3 (>60); Glucose 101 mg/dL (70-100); Sodium 137 mmol/L (135-145); Total Protein 7.3 g/dL (6.4-8.9)
[2020-08-23 13:46] LABS: Troponin I 1.35 ng/mL (<0.03)
[2020-08-23] MEDS ORDERED: Metoprolol Tartrate 5 mg VIAL 5 ml VIAL (1 mg/ml) IV ONE (14:41)
[2020-08-23] MEDS ORDERED: Heparin 5000 UNITS/ML 1 mL VIAL IV PRN (15:00)
[2020-08-23] MEDS ORDERED: nitroGLYCERIN DRIP 25,000 MCG/250 ML BTL IV ONE (15:34)
[2020-08-23] MEDS: Heparin DRIP 25,000 UNITS BAG 25,000 UNITS/500 ML BAG IV SCH (15:50)
[2020-08-23 16:03] LABS: Troponin I 1.94 ng/mL (<0.03)
[2020-08-23] MEDS ORDERED: Al Hydrox/Mg Hydrox/Simet LIQ 30 ML UDC PO PRN (16:26)
[2020-08-23] MEDS ORDERED: nitroGLYCERIN DRIP 25,000 MCG/250 ML BTL IV SCH (17:00)
[2020-08-23] MEDS ORDERED: NS 0.9% 1000 ml BAG 1,000 ML IV SCH (17:45)
[2020-08-23] MEDS ORDERED: EFAVIRENZ PO SCH (18:00)
[2020-08-23] MEDS ORDERED: LAMIVUDINE 100 MG PO SCH (18:00)
[2020-08-23] MEDS ORDERED: ABACAVIR 300 MG PO SCH (18:00)
[2020-08-23 19:14] LABS: Troponin I 2.72 ng/mL (<0.03)
[2020-08-24] LABS: Troponin I 3.36 ng/mL (<0.03)
[2020-08-24] MEDS: Morphine 2 MG/ML SYRINGE IV PRN ×2 (01:20→04:45)
[2020-08-24] MEDS ORDERED: Ondansetron 4 mg VIAL 2 MG/ML 2 ml VIAL IV PRN (05:18)
[2020-08-24 06:49] LABS: BUN/Creatinine Ratio 9.9 (8-20); EGFR African American 27.8 (>60); Potassium 4.8 mmol/L (3.5-5.0)
[2020-08-24] MEDS: Sulfamethox/Trimethoprim SS TAB 400/80 mg PO SCH (10:30)
[2020-08-24] MEDS: Sodium Bicarb 650 mg (ANTACID) TAB PO SCH (10:31)
[2020-08-24] MEDS: Multivitamins/Minerals TAB PO SCH (10:31)
[2020-08-24 12:15] LABS: Troponin I 2.04 ng/mL (<0.03)
[2020-08-24 13:00] LABS: Troponin I 1.36 ng/mL (<0.03)
[2020-08-24 17:30] LABS: ABS Eosinophils 0.1 10^3/ul (0-0.6); ABS Lymphocytes 1.6 10^3/ul (1.0-4.8); ABS Monocytes 0.8 10^3/ul (0-0.8); ABS Neutrophils 3.6 10^3/ul (1.5-7.7); Eosinophil % 2.4 %; Hematocrit 32 % (42-52); Mean Corpuscular HGB Conc 34 g/dL (31-36); Mean Corpuscular Hemoglobin 31 pg (27-31); Mean Corpuscular Volume 92 fL (80-94); Mean Platelet Volume 8.2 fL (7.4-10.4); Platelet Count 160 10^3/uL (150-450); Red Blood Count 3.54 10^6 /uL (4.18-5.48); Red Cell Distribution Width 13 % (10-15); White Blood Count 6.2 10^3/uL (3.5-10.8)
[2020-08-24] MEDS ORDERED: EFAVIRENZ 600 MG PO SCH ×2 (18:00→21:00)
[2020-08-24] MEDS: Heparin DRIP 25,000 UNITS BAG 25,000 UNITS/500 ML BAG IV SCH (20:54)
[2020-08-24] MEDS ORDERED: LAMIVUDINE 100 MG PO SCH (21:00)
[2020-08-24] MEDS ORDERED: ABACAVIR 300 MG PO SCH (21:00)
[2020-08-25] MEDS: Morphine 2 MG/ML SYRINGE IV PRN (03:34)
[2020-08-25 07:52] LABS: ABS Eosinophils 0.2 10^3/ul (0-0.6); ABS Lymphocytes 1.7 10^3/ul (1.0-4.8); ABS Monocytes 0.6 10^3/ul (0-0.8); ABS Neutrophils 3.4 10^3/ul (1.5-7.7); Eosinophil % 3.3 %; Hematocrit 33 % (42-52); Hemoglobin 11.1 g/dL (14.0-18.0); Lymphocyte % 28.9 %; Mean Corpuscular HGB Conc 34 g/dL (31-36); Mean Corpuscular Hemoglobin 31 pg (27-31); Mean Corpuscular Volume 91 fL (80-94); Mean Platelet Volume 8.4 fL (7.4-10.4); Platelet Count 164 10^3/uL (150-450); Red Blood Count 3.58 10^6 /uL (4.18-5.48); Red Cell Distribution Width 13 % (10-15); White Blood Count 5.9 10^3/uL (3.5-10.8)
[2020-08-25 08:08] LABS: BUN/Creatinine Ratio 10.4 (8-20); Calcium 10.4 mg/dL (8.6-10.3); EGFR African American 29.5 (>60); EGFR Non-African American 24.4 (>60)
[2020-08-25 13:14] VITALS: BP 146/78
[2020-08-25] MEDS ORDERED: Aminophylline 25 MG/ML VIAL ONE (15:00)
[2020-08-25] MEDS ORDERED: Regadenoson 0.4 MG/5 ML SYRINGE ONE (15:00)
[2020-08-25] MEDS: Multivitamins/Minerals TAB PO SCH (17:12)
[2020-08-25] MEDS: Sulfamethox/Trimethoprim SS TAB 400/80 mg PO SCH (17:12)
[2020-08-25] MEDS: Sodium Bicarb 650 mg (ANTACID) TAB PO SCH (17:12)
[2020-08-30] MEDS ORDERED: cloNIDine 0.3 MG PATCH 0.3 MG/24 HR 7 DAY PATCH TRANSDERM SCH (09:00)
== END 2020-08-25 17:50 | disposition home or self-care (01) | DRG 281 ==
LOC: ED 12:23 → ICU 16:05 → MEDTELE 08-24 16:45
PROVIDERS: ADMIT Internal Medicine; ATTEND Hospitalist

== ENCOUNTER 2022-10-13 06:25 | Observation (INO) ==
[2022-10-13 07:02] LABS: ABS Eosinophils 0.1 10^3/ul (0-0.6); ABS Lymphocytes 1.2 10^3/ul (1.0-4.8); ABS Monocytes 0.7 10^3/ul (0-0.8); ABS Neutrophils 5.5 10^3/ul (1.5-7.7); Eosinophil % 1.2 %; Hematocrit 40 % (42-52); Hemoglobin 13.8 g/dL (14.0-18.0); Lymphocyte % 16.4 %; Mean Corpuscular HGB Conc 35 g/dL (31-36); Mean Corpuscular Hemoglobin 32 pg (27-31); Mean Corpuscular Volume 93 fL (80-94); Mean Platelet Volume 8.5 fL (7.4-10.4); Platelet Count 176 10^3/uL (150-450); Red Cell Distribution Width 14 % (10-15); White Blood Count 7.6 10^3/uL (3.5-10.8)
[2022-10-13 07:16] LABS: INR 1.07 (0.88-1.18)
[2022-10-13 07:55] LABS: Albumin 4.3 g/dL (3.2-5.2); Albumin/Globulin Ratio 1.9 (1-3); Calcium 10.2 mg/dL (8.6-10.3); Globulin 2.3 g/dL (2-4); Potassium 4.1 mmol/L (3.5-5.0); Total Bilirubin 0.7 mg/dL (0.2-1.0); Total Protein 6.6 g/dL (6.4-8.9); eGFR CKD-EPI 86.2 (>60)
[2022-10-13] MEDS ORDERED: Albuterol/Ipratropium NEB.SOL (2.5/0.5 MG) 3 ML NEB.SOLN INH ONE ×2 (08:07→11:52)
[2022-10-13] MEDS ORDERED: Albuterol 2.5mg/3 ml (0.083%) NEB.SOLN INH ONE (08:08)
[2022-10-13 08:26] LABS: High Sensitivity Troponin 1 Hr 3 pg/mL (<20)
[2022-10-13] MEDS ORDERED: NS 0.45% 1000 ml BAG 1,000 ML IV SCH (09:00)
[2022-10-13 09:07] LABS: C Reactive Protein 23.82 mg/L (<8.01)
[2022-10-13 09:21] LABS: Rapid Strep Molecular Negative (Negative)
[2022-10-13] MEDS ORDERED: Albuterol HFA INHALER 8 gm MDI INH PRN (10:14)
[2022-10-13] MEDS ORDERED: Sulfamethox/Trimethoprim SS TAB 400/80 mg PO SCH (11:00)
[2022-10-13 16:01] VITALS: BP 123/63
[2022-10-13] MEDS ORDERED: Mometasone/Formoter 100/5 MDI INH SCH (19:00)
[2022-10-13] MEDS ORDERED: NF: Bictegravir/Emtricit/Tenofov 1 TABLET PO SCH (21:00)
[2022-10-14] MEDS ORDERED: Fluticasone/Vilanterol MDI(NF) 100/25 MDI INH SCH (09:00)
[2022-10-14] MEDS ORDERED: VALGANCICLOVIR 450 MG PO SCH (09:00)
== END 2022-10-13 16:40 | disposition home or self-care (01) ==
LOC: ED 06:25 → EDHOLD 06:25 → MEDTELE 12:46
PROVIDERS: ADMIT Internal Medicine; ATTEND Internal Medicine